=== PATIENT | female | born 1970 | race Caucasian/White ===

== ENCOUNTER → 2025-05-22 | Outpatient (CLI) | payer OTHER, SELFPAY ==
--- NOTE | 2025-05-22 11:11 | BRBX_PTH ---
PATIENT: YANA BARBOZA LOC: [facility] U#:[id number] AGE/SX: 55/F ROOM: RE05/22/[address]: Dr. Kelly Gates MD : 1970 BED: DIS: 05/22/2025 SPEC #: [id number] RECD: 05/22/25 11:30 STATUS: JESSICA JENI #: [id number] MATHEW: 05/22/25 11:[address]: Kelly Gates DEPT: SURGICAL PATHOLOGY RECD BY: Pastor Charlton ENTERED: 05/22/25 11:38 SP TYPE: BREAST BX OTHR DR: Elizabeth Rdz, SAW SETTER-C Tissues: A - Left breast, NOS Procedures: Immunohistochemical Stains Surgery Specimen Level IV IHC Stain ADDITIONAL HEADER OPERATION: Left breast stereotactic biopsy PRE-OP DIAGNOSIS: Left breast upper outer calcifications TISSUE SUBMITTED: A- Left breast microcalcifications: upper outer chambers 1&2 Ischemic Time: 13 minutes Fixation Time: 8 hours, 6 minutes MICROSCOPIC DIAGNOSIS A. Breast, left, "upper outer calcifications", stereotactic biopsy: - Ductal carcinoma in situ, high nuclear grade, solid pattern with comedonecrosis. - Focal microcalcification noted. - ER: positive (100%, strong intensity). - ND: positive (75%, intermediate to strong intensity). - Ki67q: 35-40% Note: IHC for CK5/6 and p40 support the histologic impression. MICROSCOPIC DESCRIPTION Slides are reviewed. All matched controls reacted appropriately. These tests were developed and their performance characteristics determined by [facility]. They may not have been cleared or approved by the [place] Food and Drug Administration. The FDA has determined that such clearance or approval is not necessary. The above immunohistochemical/dualISH markers are reviewed by the Pathologist. GROSS DESCRIPTION Received fresh and subsequently placed in formalin labeled with the patient's name and date of are 6 philip-yellow lobulated, elongated soft tissue fragments, 2.3-4.4 cm in length by 0.2-0.6 cm in diameter. The specimen is entirely submitted in 3 cassettes, following postoperative imaging as follows: A1: Chamber #1-#2A2: Chambers #3-#4A3: Chambers #5-#6 Cold ischemic time: 13 minutesFormalin fixation time: 8 hours, 6 minutes AL 05/22/2025 CPT:40641,[id number]
--- NOTE | 2025-05-22 11:48 | PCM.OPRPT ---
Operative Report (Standard) Operative Information Date of Procedure: 05/22/25 Pre-Operative Diagnosis: Left breast microcalcifications Post-Operative Diagnosis: Same Surgery/Procedure Performed: Stereotactic left breast biopsy tacking stitch remover: No Type of Anesthesia: Local Procedure Start Time: 11:10 Procedure Stop Time: 11:35 Select all DRAINS/GRAFTS/IMPLANTS that apply: Implanted device Implanted device details: Mammotome clip Estimated Blood Loss: 10 cc Specimen collected: Yes Description of specimen(s) removed: Left breast microcalcifications upper outer Description of surgery: Procedure: Left stereotactic core biopsy Indications: 55 year-old female with microcalcifications in the upper outer of the left breast. Risk benefits were discussed the patient and she elected to proceed with stereotactic core biopsy with clip placement Description of procedure: Patient was brought into the mammography suite and laid prone on the stereotactic table. A timeout was completed verifying correct patient, procedure, site, specially, prior to beginning procedure. The left breast was prepped and draped in usual sterile fashion and using local anesthesia was obtained with 1% lidocaine with epi. Patient's left breast was positioned and placed into compression. Initial film showed calcifications are in the center of the compression paddle. 15° views were then taken. The calcifications were localized. The left breast was prepped draped in usual sterile fashion. An 8-gauge mammotome was set up according to the digital coordinates. The tract of the mammotome was anesthetized with local anesthesia and an incision was made with the 11 blade scalpel at the entry site. The mammotome was advanced to the prefire state. Pre-prior films were checked and verified. The mammotome was fired. Post fire films were also checked and verified. Biopsies were taken from 9:00 to 2:00. The specimen was x-rayed and a good representation of the calcifications were within the specimen. Mammotome clip was placed at the 12 o'clock position. The mammotome was removed from the breast. An additional films were taken which showed the majority of the calcifications were removed and a clip was in place. Pressure was held for hemostasis for about 20 minutes. Once hemostasis was assured the wound was dressed with Steri-Strips and OpSite. The patient tolerated the procedure well and was discharged from the mammography suite good condition. complications: none Surgical Findings: See operative report Complications Complications: No
--- OUTSIDE RECORDS SUMMARY | 2025-05-22 19:58 | XMS RPT_ITS | CCD ---
Author Organization [facility] Care Team Providers Care [address] Man Name Role Phone DEMARIO ALLERGY NURSE-DRAWING KILN SUPERVISOR, AGA S Primary Care Physicia n DEMARIO ALLERGY NURSE-DRAWING KILN SUPERVISOR, AGA S Attending Unava ilable DEMARIO ALLERGY NURSE-DRAWING KILN SUPERVISOR, AGA S Primary Care Unava ilable DEMARIO ALLERGY NURSE-DRAWING KILN SUPERVISOR, AGA S Primary Care Unava ilable NELLY HERMOSILLO, CHRISTINE W Attending Unavailable DEMARIO ALLERGY NURSE-DRAWING KILN SUPERVISOR, AGA S Primary Care Unava ilable DEMARIO ALLERGY NURSE-DRAWING KILN SUPERVISOR, AGA S Attending Unava ilcooper GALLARDO MD, CAESAR Attending Unavailable DEMARIO ALLERGY NURSE-DRAWING KILN SUPERVISOR, AGA S Primary Care Unava ilcooper GALLARDO MD, CAESAR Attending Unavailable DEMARIO ALLERGY NURSE-DRAWING KILN SUPERVISOR, AGA S Primary Care Unava ilable DEMARIO ALLERGY NURSE-DRAWING KILN SUPERVISOR, AGA S Attending Unava ilable DEMARIO ALLERGY NURSE-DRAWING KILN SUPERVISOR, AGA S Primary Care Unava ilable DEMARIO ALLERGY NURSE-DRAWING KILN SUPERVISOR, AGA S Primary Care Unava ilable DEMARIO ALLERGY NURSE-DRAWING KILN SUPERVISOR, AGA S Attending Unava ilable SEFFENS ALLERGY NURSE-DRAWING KILN SUPERVISOR, ESTEFANI Attending Unavai lable DEMARIO ALLERGY NURSE-DRAWING KILN SUPERVISOR, AGA S Primary Care Unava ilable DEMARIO ALLERGY NURSE-DRAWING KILN SUPERVISOR, AGA S Primary Care Unava ilable DEMARIO ALLERGY NURSE-DRAWING KILN SUPERVISOR, AGA S Attending Unava ilable DEMARIO ALLERGY NURSE-DRAWING KILN SUPERVISOR, AGA S Primary Care Unava ilable DEMARIO ALLERGY NURSE-DRAWING KILN SUPERVISOR, AGA S Attending Unava wu Gates MD, Dr. Mendoza Attending Provider Demario NAIL FEEDER-C, Aga Primary Care Provider [phone] Demario NAIL FEEDER-C, Aga Referring Provider [phone] Aga Hanks NP Referring Unavailable Aga Hanks NP Primary Care Unavailable Kelly Gates Attending Unavailable Kelly Gates Attending Unavailable Aga Hanks NP Primary Care Unavailable Kelly Gates Referring Unavailable Allergies Allergy Classification Reported Allergen(s) Allergy Type Date of Onset Reaction(s) Facility (5 sources) Sulfonamides (Antibiotic); Translations: [sulfa drugs] Drug allergy [facility] (6 sources) Sulfonamide; Translations: [sulfa drugs] Drug allergy [facility] (1 source) Sulfonamides (Antibiotic) Propensity to adverse reactions [address] [facility] (1 source) bee venom protein (honey bee) Allergy to substance [address] [facility] (1 source) Sulfonamides (Antibiotic) Drug allergy (disorder) 5 [facility] (1 source) bee venom protein (honey bee) Drug allergy (disorder) 5 [facility] Medications Current Medications Medication Drug Class(es) Dates Sig (Normalized) Sig (Original) acetaminophen 325 mg oral capsule (1 source) Start: 02-16-2024 take 1 capsule by mouth every six hours acetaminophen 325 mg oral capsule Dose : 650 mg =, Oral, q6h, # 20 cap(s), 0 Refill(s), Pharmacy: [facility]/pharmacy #[id number], 170, cm, 02/16/24 10:53:00 EDT, Height, kg, 02/16/24 10:53:00 EDT, Dosing Weight Start Date: 02/16/24 Status: Ordered cyclobenzaprine hydrochloride 10 mg oral tablet (1 source) Muscle Relaxant Start: 07-22-2022 cyclobenzaprine 10 mg oral tablet Dose : 10 mg = 1 tab(s), Oral, TID, PRN for muscle spasm, # 30 tab(s), 1 Refill(s), Pharmacy: [facility]/pharmacy #[id number], 172.5, cm, 07/22/22 7:22:00 EDT, Height Start Date: 07/22/22 Status: Ordered {21 (Ethinyl Estradiol 0.03 MG / Norgestrel 0.3 MG Oral Tablet) / 7 (Inert Ingredients 1 MG Oral Tablet) } Pack [Low-Ogestrel 28 Day] (9 sources) Estrogen Start: 05-30-2023 take 1 tablet by mouth once daily Low-Ogestrel 0.3 mg-30 mcg oral tablet Dose = 1 tab(s), Oral, Daily, Brand Lo-Ogestrel, # 84 tab(s), 3 Refill(s), KULDIP, Pharmacy: [facility], 172.7, cm, 05/27/23 12:19:00 EDT, Height, kg, 05/27/23 12:19:00 EDT, Dosing Weight Start Date: 05/30/23 Status: Ordered Start: 05-24-2023 End: 06-21-2023 take 1 tablet by mouth once daily Low-Ogestrel 0.3 mg-30 mcg oral tablet Dose = 1 tab(s), Oral, Daily, Brand Lo-Ogestrel filling in lieu of pcp, # 28 tab(s), 0 Refill(s), KULDIP, Pharmacy: [facility]/pharmacy #[id number], 172, cm, 04/22/23 11:23:00 EDT, Height, kg, 04/22/23 11:23:00 EDT, Dosing Weight Start Date: 05/24/23 Stop Date: 06/21/23 Status: Ordered Start: 06-16-2022 End: 05-15-2025 Norgestrel-Ethinyl Estradiol (Low-Ogestrel (28)) 0.3-30 mg-mcg tablet Discontinued 1 {tbl} PO DAILY June 16, 2022 12:00am May 15, 2025 9:20am Start: 04-21-2022 End: 03-23-2023 take 1 tablet by mouth once daily Low-Ogestrel 0.3 mg-30 mcg oral tablet Dose = 1 tab(s), Oral, Daily, Brand Lo-Ogestrel, # 84 tab(s), 3 Refill(s), KULD[place], Pharmacy: [facility], 172.5, cm, 04/21/22 7:55:00 EDT, Height, kg, 04/21/22 7:55:00 EDT, Dosing Weight Start Date: 04/21/22 Stop Date: 03/23/23 Status: Ordered ibuprofen 600 mg oral tablet (1 source) Nonsteroidal Anti-inflammatory Drug Start: 02-16-2024 IBU 600 mg oral tablet Dose : 600 mg = 1 tab(s), Oral, q6h, # 20 tab(s), 0 Refill(s), [id number] 170, cm, 02/16/24 10:53:00 EDT, Height, kg, 02/16/24 10:53:00 EDT, Dosing Weight Start Date: 02/16/24 Status: Ordered meloxicam 15 mg oral tablet (1 source) Nonsteroidal Anti-inflammatory Drug Start: 07-22-2022 meloxicam 15 mg oral tablet Dose : 15 mg = 1 tab(s), Oral, qDay, # 30 tab(s), 1 Refill(s), [id number] 172.5, cm, 07/22/22 7:22:00 EDT, Height Start Date: 07/22/22 Status: Ordered oxyCODONE hydrochloride 5 mg oral tablet (1 source) Opioid Agonist Start: 02-16-2024 End: 02-17-2024 oxyCODONE 5 mg oral tablet ( IMMEDIATE release ) Dose : 5 mg = 1 tab(s), Oral, q6hr, # 4 tab(s), 0 Refill(s), [id number], Acute post-operative pain Status post hysteroscopic polypectomy, 170, cm, 02/16/24 10:53:00 EDT, Height, 85, kg, 02/16/24 10:53:00 EDT, Dosing Weight Start Date: 02/16/24 Stop Date: 02/17/24 Status: Ordered rizatriptan 10 mg oral tablet (13 sources) Serotonin-1b and Serotonin-1d Receptor Agonist Start: 01-13-2024 take 1 tablet by mouth once as needed for headache rizatriptan 10 mg oral tablet See Instructions, TAKE 1 TABLET BY MOUTH ONCE NEEDED FOR MIGRAINE HEADACHE, # 12 tab(s), 9 Refill(s), Pharmacy: [facility], 170, cm, 01/06/24 13:57:00 EST, Height, kg, 01/06/24 13:57:00 EST, Dosing Weight Start Date: 01/13/24 Status: Ordered Quantity: 12.0 Unit: tab(s) Repeat number: 10 Start: 07-17-2023 take 1 tablet by mar th once as needed for headache rizatriptan 10 mg oral tablet See Instructions, TAKE 1 TABLET BY MOUTH ONCE NEEDED FOR MIGRAINE HEADACHE, # 12 tab(s), 1 Refill(s), Pharmacy: [facility], 172.7, cm, 05/27/23 12:19:00 EDT, Height, kg, 05/27/23 12:19:00 EDT, Dosing Weight Start Date: 10/04/23 Status: Ordered Start: 04-21-2022 take 1 tablet by mar th once as needed for headache rizatriptan 10 mg oral tablet See Instructions, TAKE 1 TABLET BY MOUTH ONCE NEEDED FOR MIGRAINE HEADACHE, # 9 tab(s), 1 Refill(s), Pharmacy: [facility], 172, cm, 04/22/23 11:23:00 EDT, Height, kg, 04/22/23 11:23:00 EDT, Dosing Weight Start Date: 04/22/23 Status: Ordered triamcinolone acetonide 5 mg/ml topical cream (3 sources) Corticosteroid Start: 04-12-2025 End: 05-10-2025 triamcinolone 0.5% topical cream Apply 1 doris, Topical, BID, X 14 day(s), # 60 gram(s), 1 Refill(s), Pharmacy: [facility]/pharmacy #[id number], Cream, 171.5, cm, 04/12/25 8:21:00 EDT, Height, 79, kg, 04/12/25 8:21:00 EDT, Dosing Weight Start Date: 04/12/25 Stop Date: 05/10/25 Status: Ordered Quantity: 60.0 Unit: g Repeat number: 2 Completed/Discontinued Medications Medication Drug Class(es) Dates Sig (Normalized) Sig (Original) amitriptyline hydrochloride 50 mg oral tablet (4 sources) Tricyclic Antidepressant Start: 04-21-2022 End: 05-15-2025 take 1 tablet by mouth once daily Amitriptyline 50 mg tablet Discontinued 50 mg PO DAILY June 16, 2022 12:00am May 15, 2025 9:20am amoxicillin 875 mg / clavulanate 125 mg oral tablet (1 source) Penicillin-class Antibacterial Start: 08-08-2022 End: 05-15-2025 Amoxicillin-Pot Clavulanate 875-125 mg tablet Discontinued 1 {tbl} PO TWICE A DAY 14 0 August 08, 2022 12:00am May 15, 2025 9:20am cefdinir 300 mg oral capsule (1 source) Cephalosporin Antibacterial Start: 10-13-2015 End: 06-16-2022 take 1 capsule by mouth twice daily Cefdinir 300 MG capsule Discontinued 300 mg PO TWICE A DAY 20 0 October 13, 2015 1:00am June 16, 2022 5:23pm [id number] 0.3 ml EPINEPHrine 1 mg/ml auto-injector (9 sources) alpha-Adrenergic Agonist, beta-Adrenergic Agonist, Catecholamine Start: 07-22-2022 EpiPen 2-Abhijit 0.3 mg injectable kit Dose : 0.3 mg =, Intramuscular, AsDirected, PRN Allergic reaction, # 1 kit(s), 0 Refill(s), Pharmacy: [facility]/pharmacy #[id number], 172.5, cm, 07/22/22 7:22:00 EDT, Height Start Date: 07/22/22 Status: Ordered Quantity: 1.0 Unit: kit(s) Repeat number: 1 predniSONE 10 mg oral tablet (1 source) Start: 06-16-2022 End: 06-28-2022 Prednisone 10 mg tablet Discontinued 10 mg PO daily 30 12 0 June 16, 2022 12:00am June 27, 2022 12:00am June 28, 2022 12:04am Unspecified contact dermatitis, unspecified cause Take 4 tabs once daily days 1-3 3 tabs once daily days 4-6 2 tabs once daily days 7-9 and 1 tab once daily days 10-12. 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 Episodic Headache; including migraine (11 sources) Migraine 08-26-2018 Chronic Menstrual disorders (3 sources) Menorrhagia; Translations: [Excessive and frequent menstruation with regular cycle] Onset: 02-16-2024 Chronic Other connective tissue disease (8 sources) Bursitis of olecranon of left elbow 08-14-2021 Episodic Other female genital disorders (2 sources) Abnormal uterine bleeding 01-06-2024 Chronic Other female genital disorders (1 source) Polyp of corpus uteri; Translations: [Polyp of corpus uteri] Onset: 02-16-2024 Episodic Other nervous system disorders (1 source) Postoperative pain ; Translations: [Other acute postprocedural pain] Onset: 02-16-2024 Episodic Other screening for suspected conditions (not mental disorders or infectious disease) (9 sources) Stool DNA-based colorectal cancer screening positive; Translations: [Other abnormal and inconclusive findings on diagnostic imaging of breast] Onset: 05-08-2025 05-17-2023 Episodic Other upper respiratory infections (3 sources) Acute pharyngitis, unspecified; Translations: [Acute maxillary sinusitis] Onset: 10-11-2024 Episodic Poisoning by nonmedicinal substances (1 source) Bee sting; Translations: [Toxic effect of venom of bees, accidental (unintentional), initial encounter] 06-16-2022 Episodic Residual codes; unclassified (1 source) Past history of procedure; Translations: [Other specified postprocedural states] Onset: 02-16-2024 Episodic Skin and subcutaneous tissue infections (8 sources) Cellulitis of upper limb 08-14-2021 Episodic Spondylosis; intervertebral disc disorders; other back problems (7 sources) Neck pain; Translations: [Cervicalgia] Episodic Unclassified (11 sources) Cancer cervix screening status 04-21-2022 Unclassified (20 sources) Patient encounter status 04-04-2020 Past or Other Problems Problem Classification Problem Date Documented Da te Episodic/Chronic Other gastrointestinal disorders (2 sources) Other fecal abnormalities; Translations: [Other fecal abnormalities] Onset: 05-27-2023 Episodic Results Test Name Value Interpretation Reference Range Facility Surgery Visit Reporton 05-15 Surgery Visit Report [facility] [address] [place] [address] OFFICE VISIT Date of Service: 05/15/25 MR#: [id number] Acct: [id number] Name: YANA BARBOZA Rep #: [id number] : 1970 Provider: Dr. Kelly reyes MD Age/Sex: 55/F Location: [facility] Status: Signed Intake Vital Signs 06/16/22 17:22 05/15/25 09:19 Height 5 ft 8 in 5 ft 8 in Weight: 174 lb 4 oz BMI 26.4 BP 115/76 Blood Pressure Location Rt brachial Position Sitting Respiration 17 Pulse 81 Pulse Source Monitor Temp 97.3 F L Temp Source Temporal Pulse Oximetry (%) 100 Oxygen Delivery Method room air Intake Visit Reasons: BIRADS 4- MAMMO ONLY Chief Complaint: BIRADS 4- mammo only Is patient in pain?: No Allergies bee venom protein (honey bee) Allergy (Severe, Verified 05/15/25 09:20) Anaphylaxis Sulfa (Sulfonamide Antibiotics) Adverse Reaction (Verified 05/15/25 09:20) Nausea Medications ???Medication ???Instructions ???Recorded ???Confirmed ???Type rizatriptan 10 mg tablet 10 mg PO ONCE PRN 06/16/22 5 History PFSH Surgical History H/O sinus surgery Family History (Updated 05/15/25 @ 09:19 by Camryn Booth LPN) Grandmother Breast cancer Social History (Updated 05/15/25 @ 09:19 by Camryn Booth LPN) Smoking Status: Never smoker alcohol intake: never substance use type: does not use HPI HPI HPI: 55-year-old female presents due to abnormal left breast mammogram. Linear microcalcifications are seen on mammogram given a BI-RADS 4 recommended biopsy. Patient denies any pain to her breast, trauma, nipple discharge. Age of menses 14, age of of first child N/A, family history of breast cancer maternal grandmother in her 70s, no previous breast biopsies. ROS General General: No weight change, appetite, fatigue, colon cancer, breast cancer or weakness HEENT HEENT: No difficulty swallowing, eye injury, eye surgery, swollen glands or hoarseness Endo Endocrine: No thyroid disease, diabetes mellitus, thyroid cancer, Hair loss, heat intolerance or cold intolerance Skin Skin: No rash or changing moles Breast Breast: Yes abnormal mammogram; No left breast lump, right breast lump, nipple discharge, breast pain, abnormal US or breast enlargement Musc Musculoskeletal: Yes back problems; No arthritis, rheumatoid arthritis, gout or joint pain Additional Details: scoliosis Cardio Cardiovascular: No murmur, pacemaker, heart disease, atrial fibrillation, high blood pressure, heart attack, heart stent, palpitations, shortness of breath with exertion or chest pain Psych Psychiatric: No depression, anxiety or hearing voices Resp Respiratory: No shortness of breath, No sleep apnea, No cough, No COPD, No asthma, No emphysema and No wheezing Gastro Gastrointestinal: No abdominal pain, No nausea or vomiting, No diarrhea, No constipation, No blood in stool, No acid reflux, No hemorrhoids, No ulcers, No gallbladder problem and No black,tarry stools Bryan Hematologic: No blood thinners, No blood disorders, No bleeding, No anemia and No blood clots Neuro Neurologic: No numbness, No tingling and No weakness Exam Const General: cooperative, healthy appearing and no acute distress [facility] Head: normal to inspection Chest Other: Patient deferred/declined breast exam Resp Effort Inspection: normal respiratory effort Cardio Rate: regular rate GI Inspection: non-distended Skin General: no rashes or lesions noted Neuro General: patient oriented x3 Extrem General: no clubbing, cyanosis or edema Psych Affect: normal affect Assessment and Plan Assessment and Plan (1) Abnormality of left breast on screening mammogram: Status: Acute Orders: Orders Stereo Breast Biopsy [address] [place] [address] 05/22/25 R92.8 - Other abnormal and inconclusive findings on diagnostic imaging of breast Plan I have discussed above with the patient. I have recommended stereotactic guided needle core breast biopsy . I have described the procedure to the patient. A marker clip will be placed to identify the location. Patient has been counseled to the risks/benefits of the procedure. I have explained the risks of the surgery, including but not limited to: infection, bleeding, injury to any blood vessels/nerves, scar tissue, missing the lesion, further surgery, etc. - the patient understands and agrees to proceed. I have answered all of the patient's questions to her satisfaction and she has no further questions. Kelly Gates M.D. Pager: [phone] [facility] [address] [place] [address], Outpatient Pavilion, [address] [place] [address] Office: [phone] Coding Level of (more content not included)... Normal [facility] MA MAMMOGRAM DIAGNOSTIC LEFT on 05-08-2025 [place] MAMMOGRAM DIAGNOSTIC LEFT ORIGINAL FROM: [address] [address] PROCEDURE FOR: YANA BARBOZA [address] [place] [address] Home: PID#: [id number] Exam#: [id number] : 1970 Age: 55 TO: AGA HANKS APRN [address] [address] Fax: NO FAX EXAMINATION: DIAGNOSTIC DIGITAL LEFT BREAST MAMMOGRAM, 05/08/2025 11:00 am TECHNIQUE: Diagnostic mammography of the left breast was performed. Current study was also evaluated with a Computer Aided Detection (CAD) system. COMPARISON: Mammogram 2025, June 04, 2023 HISTORY: ORDERING SYSTEM PROVIDED HISTORY: Reason for Exam: Calcifications FINDINGS: BREAST DENSITY: There are scattered areas of fibroglandular density. There is an 8 mm group of punctate calcifications within the left breast at 2 o'clock, middle depth. These are seen in additional views. Some of these calcifications appear to be linear and possibly branching. No additional significant masses, calcifications, or other findings. IMPRESSION: The 8 mm group of calcifications within the left breast appears suspicious of malignancy. A stereotactic core biopsy is recommended. BIRADS: BI-RADS: 4: Suspicious RECALL: immediate RECALL TYPE: Biopsy followup LETTER SENT: Biopsy Recommended BI-RADS 4 and 5 Interpreted by: Jackie Gomez MD Preliminary Report By: Jackie Gomez MD Electronically signed By Jackie Gomez MD Dictated Date: 05/08/2025 7:14:42 PM Prelim Date: 05/08/2025 7:16:54 PM Sign Date: 05/08/2025 7:16:54 PM Ordering Provider: AGA HANKS Interpreted by: Jackie Gomez MD Preliminary Report By: Jackie Gomez MD Electronically signed By Jackie Gomez MD Dictated Date: 05/08/2025 7:14:42 PM Prelim Date: 05/08/2025 7:16:54 PM Sign Date: 05/08/2025 7:16:54 PM Ordering Provider: AGA HANKS Sliver Former: GEGE CONTRERAS RT (R)(M) letter sent: Biopsy Recommended BI-RADS 4 and 5 Mammogram BI-RADS: 4 Suspicious for malignancy Normal [facility] MAMMOGRAM SCREENING BILAT ERAL W/TOMOon 05-02-2025 CO MAMMOGRAM SCREENING BILATERAL W/[place] ORIGINAL FROM: [address] [address] PROCEDURE FOR: YANA BARBOZA [address] [address] Home: PID#: [id number] Exam#: [id number] : 1970 Age: 55 TO: AGA HANKS ALLERGY NURSE [place] [address] Fax: NO FAX EXAMINATION: SCREENING DIGITAL BILATERAL MAMMOGRAM WITH TOMOSYNTHESIS, 2025 7:52 am TECHNIQUE: Screening mammography of the bilateral breasts was performed with tomosynthesis. 2D standard and 3D tomosynthesis combination imaging performed through both breasts in the MLO and CC projection. Computer aided detection was utilized in the interpretation of this exam. COMPARISON: 06/04/2023, 06/03/2022 HISTORY: Breast cancer screening. FINDINGS: BREAST DENSITY: Scattered fibroglandular tissue. New grouped heterogeneous calcifications measuring 8 mm are noted in the left breast at 2 o'clock middle depth. There are no significant masses. IMPRESSION: New grouped heterogeneous calcifications in left breast at 2 o'clock middle depth. Recommend further evaluation with spot magnification views and a true lateral view. Reji Emery risk calculations, generated with the history provided, report this patient's 10 year risk and lifetime risk for developing breast cancer at 4.6% and 14.7%, respectively. Based on this assessment tool, if the patient's calculated lifetime risk is below 20%, then the patient is considered at average risk for developing breast cancer. If the patient's calculated lifetime risk is at or above 20%, then the patient is considered high risk for developing breast cancer and may be a candidate for supplemental breast MRI screening in addition to annual mammographic screening per the [place]. BIRADS: BI-RADS: 0: Incomplete: Need Additional Imaging Evaluation RECALL: immediate RECALL TYPE: mammo LETTER SENT: Abnormal-Needs additional work up BI-RADS 0 Interpreted by: Selvin Perales MD Preliminary Report By: Cristhian Schroeder Electronically signed By Selvin Perales MD Dictated Date: 2025 9:49:14 AM Prelim Date: 05/02/2025 3:27:53 PM Sign Date: 05/02/2025 3:27:53 PM Ordering Provider: AGA HANKS Interpreted by: Selvin Perales MD Preliminary Report By: Cristhian Schroeder Electronically signed By Selvin Perales MD Dictated Date: 2025 9:49:14 AM Prelim Date: 05/02/2025 3:27:53 PM Sign Date: 05/02/2025 3:27:53 PM Ordering Provider: AGA HANKS Sliver Former: GEGE CONTRERAS RT (R)(M) letter sent: Abnormal-Needs additional work up BI-RADS 0 Mammogram BI-RADS: [address] [facility] .GFRon 2025 Estimated Glomerular Filtration Rate 65 ml/min/1.73sqm Normal [facility] Comment on above: Result Comment: Stages of Chronic Kidney Disease (CKD) Stage Description eGFR(ml/min/1.73 sq.m.) CKD 1 Normal kidney function or >=90 normal kindney function with possible kidney damage (ex. Proteinuria) CKD 2 Kidney damage with mild loss 60-89 of kidney function CKD 3a Mild to moderate loss of kidney 45-59 function CKD 3b Moderate to severe loss of 30-44 of kindey function CKD 4 Severe loss of kidney function 15-29 CKD 5 Kidney failure <15 Note: (go live 2024) the eGFR calculation was updated to the 2020 CKD-EPI creatinine equation without a race factor to calculate the eGFR results. Performed By: #### L IPID, GFR, CMP #### [address] [address] CMPon 2025 Albumin Level 3.7 G/dL Normal 3.5-5.0 [facility] Comment on above: Performed By: #### L IPID, GFR, CMP #### [address] [address] Albumin/Globulin [Mass ratio] 1.0 {ratio} Low 1.1-2.5 [facility] Comment on above: Performed By: #### L IPID, GFR, CMP #### [address] [address] ALP [Catalytic activity/Vol] 113 U/L Normal 40-135 [facility] Comment on above: Performed By: #### L IPID, GFR, CMP #### [address] [address] ALT [Catalytic activity/Vol] 21 U/L Normal 14-59 [facility] Comment on above: Performed By: #### L IPID, GFR, CMP #### [address] [address] AST [Catalytic activity/Vol] 26 U/L Normal 10-40 [facility] Comment on above: Performed By: #### L IPID, GFR, CMP #### [address] [address] Bili Total 0.5 mg/dL Normal 0.2-1.0 [facility] Comment on above: Result Comment: Use of this assay is not recommended for patients undergoing treatment with eltrombopag due to the potential for falsely elevated results. Performed By: #### L IPID, GFR, CMP #### [address] [address] BUN/Creatinine Ratio 25 ratio Normal 7-27 [facility] Comment on above: Performed By: #### L IPID, GFR, CMP #### [address] [address] Calcium [Mass/Vol] 9.0 mg/dL Normal 8.4-10.2 [facility] Comment on above: Performed By: #### L IPID, GFR, CMP #### [address] [address] Chloride [Moles/Vol] 106 mmol/L Normal 98-107 [facility] Comment on above: Performed By: #### L IPID, GFR, CMP #### [address] [address] CO2 [Moles/Vol] 26 mmol/L Normal 22-29 [facility] Comment on above: Performed By: #### L IPID, GFR, CMP #### [address] [address] Creatinine [Mass/Vol] 1.03 mg/dL High 0.51-0.95 [facility] Comment on above: Performed By: #### L IPID, GFR, CMP #### [address] [address] Electrolyte Balance 9.0 mEq/L Normal 4.0-15.0 [facility] Comment on above: Performed By: #### L IPID, GFR, CMP #### [address] [address] Globulin 3.8 G/dL Normal 2.7-4.4 [facility] Comment on above: Performed By: #### L IPID, GFR, CMP #### [address] [address] Glucose [Mass/Vol] 92 mg/dL Normal 70-105 [facility] Comment on above: Performed By: #### L IPID, GFR, CMP #### [address] [address] Potassium [Moles/Vol] 4.0 mmol/L Normal 3.5-5.1 [facility] Comment on above: Performed By: #### L IPID, GFR, CMP #### [address] [address] Sodium [Moles/Vol] 141 mmol/L Normal 136-145 [facility] Comment on above: Performed By: #### L IPID, GFR, CMP #### [facility] [address] [place], [place] [address] Total Protein 7.5 G/dL Normal 6.4-8.2 [facility] Comment on above: Performed By: #### L IPID, GFR, CMP #### [facility] [address] [place], [place] [address] Urea nitrogen [Mass/Vol] 26 mg/dL High 7-18 [facility] Comment on above: Performed By: #### L IPID, GFR, CMP #### [facility] [address] [place], [place] [address] LABORATORYOrdered By: SYSTEM SYSTEM on 2025 Albumin BCP dye [Mass/Vol] 3.7 G/dL Normal 3.5 - 5.0 G/dL AO ADM SS Albumin/Globulin [Mass ratio] 1.0 {ratio} Low 1.1 - 2.5 ratio AO ADM SS ALP [Catalytic activity/Vol] 113 U/L Normal 40 - 135 U/L AO ADM SS ALT With P-5'-P [Catalytic activity/Vol] 21 U/L Normal 14 - 59 U/L AO ADM SS AST With P-5'-P [Catalytic activity/Vol] 26 U/L Normal 10 - 40 U/L AO ADM SS Bilirubin [Mass/Vol] 0.5 mg/dL Normal 0.2 - 1 .0 mg/dL AO ADM SS Comment on above: Interpretive Data: U se of this assay is not recommended for patients undergoing treatment with eltrombopag due to the potential for falsely elevated results. Calcium [Mass/Vol] 9.0 mg/dL Normal 8.4 - 10. 2 mg/dL AO ADM SS Chloride [Moles/Vol] 106 mmol/L Normal 98 - 10 7 mmol/L AO ADM SS CO2 [Moles/Vol] 26 mmol/L Normal 22 - 29 mmol/L AO ADM SS Creatinine [Mass/Vol] 1.03 mg/dL High 0.51 - 0.95 mg/dL AO ADM SS Electrolyte Balance 9.0 mEq/L Normal 4.0 - 15 .0 mEq/L AO ADM SS Estimated Glomerular Filtration Rate 65 ml/min/1.73sqm Invalid Interpretation Code AO Chemistry S Comment on above: Interpretive Data: Stages of Chronic Kidney Disease (CKD) Stage Description eGFR(ml/min/1.73 sq.m.) CKD 1 Normal kidney function or >=90 normal kindney function with possible kidney damage (ex. Proteinuria) CKD 2 Kidney damage with mild loss 60-89 of kidney function CKD 3a Mild to moderate loss of kidney 45-59 function CKD 3b Moderate to severe loss of 30-44 of kindey function CKD 4 Severe loss of kidney function 15-29 CKD 5 Kidney failure <15 Note: (go live 2024) the eGFR calculation was updated to the 2020 CKD-EPI creatinine equation without a race factor to calculate the eGFR results. Globulin 3.8 G/dL Normal 2.7 - 4.4 G/dL AO ADM SS Glucose [Mass/Vol] 92 mg/dL Normal 70 - 105 mg/dL AO ADM SS Potassium [Moles/Vol] 4.0 mmol/L Normal 3.5 - 5.1 mmol/L AO ADM SS Protein [Mass/Vol] 7.5 G/dL Normal 6.4 - 8.2 G/dL AO ADM SS Sodium [Moles/Vol] 141 mmol/L Normal 136 - 145 mmol/L AO ADM SS Urea nitrogen [Mass/Vol] 26 mg/dL High 7 - 18 mg/dL AO ADM SS Urea nitrogen/Creatinine [Mass ratio] 25 ratio Normal 7 - 27 ratio AO ADM SS LABORATORYOrdered By: Aayush Cox on 2025 Cholesterol [Mass/Vol] 211 mg/dL High 0 - 200 mg/dL AO ADM SS Comment on above: Interpretive Data: C holesterol Reference Interval: Less than 200 Desirable 200-239 Borderline high risk 240 and above High risk Cholesterol in HDL [Mass/Vol] 56 mg/dL Normal 40 - 60 mg/dL AO ADM SS Cholesterol in LDL [Mass/Vol] 135 mg/dL High 0 - 130 mg/dL AO ADM SS Triglyceride [Mass/Vol] 101 mg/dL Normal 0 - 150 mg/dL AO ADM SS Comment on above: Interpretive Data: T riglyceride Reference Interval: Less than 150 Normal 150-199 Borderline high risk 200-499 High risk 500 or higher Very high risk LIPIDon 2025 Cholesterol [Mass/Vol] 211 mg/dL High 0-200 [facility] Comment on above: Result Comment: Chol esterol Reference Interval: Less than 200 Desirable 200-239 Borderline high risk 240 and above High risk Performed By: #### L IPID, GFR, CMP #### [place] [id number] [place], [place] [address] Cholesterol in HDL [Mass/Vol] 56 mg/dL Normal 40-60 [facility] Comment on above: Performed By: #### L IPID, GFR, CMP #### [address] [address] Cholesterol in LDL [Mass/Vol] 135 mg/dL High 0-130 [facility] Comment on above: Performed By: #### L IPID, GFR, CMP #### [address] [address] Triglyceride [Mass/Vol] 101 mg/dL Normal 0-150 [facility] Comment on above: Result Comment: Trig lyceride Reference Interval: Less than 150 Normal 150-199 Borderline high risk 200-499 High risk 500 or higher Very high risk Performed By: #### L IPID, GFR, CMP #### [address] [address] Final Surgical Pathology Rep [facility] 02-18-2024 Final Surgical Pathology Report . Pathology Reports Accession: Collected Date/Time: Received Date/Time: Pathologist: [id number] 02/16/2024 12:15 EDT 02/17/2024 08:51 EDT CARSON CHÁVEZ MD Final Surgical Pathology Report DIAGNOSIS: A. ENDOMETRIAL POLYP: - ENDOMETRIAL POLYP IDENTIFIED B. ENDOMETRIUM, CURETTAGE: - FRAGMENTS OF ENDOMETRIAL POLYP AND PROLIFERATIVE ENDOMETRIUM IDENTIFIED CLINICAL INFORMATION: ABNORMAL UTERINE AND VAGINAL BLEEDING, MENOPAUSAL AND FEMALE CLIMACTERIC STATES Procedure: HYSTEROSCOPY WITH DILATION AND CURETTAGE Preoperative diagnosis: ABNORMAL UTERINE BLEEDING, ABNORMAL ENDOMETRIAL ULTRASOUND, MENOPAUSAL SYMPTOMS Postoperative diagnosis: ABNORMAL UTERINE BLEEDING, ABNORMAL ENDOMETRIAL ULTRASOUND, MENOPAUSAL SYMPTOMS SPECIMEN: A ENDOMETRIAL POLYP B ENDOMETRIAL CURETTINGS GROSS DESCRIPTION: All parts labelled with patient name and [id number] A. Received in formalin labeled "endometrial polyp" is 1 gauze containing 2 philip-pink and hemorrhagic tissue fragments aggregating 2.3 x 1.6 x 0.5 cm. TS-1 B. Received in formalin labeled endometrial curettings" is 1 gauze containing multiple philip-pink and hemorrhagic tissue fragments aggregating to 0.2 x 1.5 x 0.4 cm. TS-1 Valeri Alex, Grossing Food Expeditor/ Dr. Carson Chávez, Pathologist Dictated by Valeri Alex MICROSCOPIC DESCRIPTION: The microscopic examination is performed, except in the case of Gross Only. Electronically Signed by Pathology Report verified by [facility] CARSON CHÁVEZ Sign out Date: 02/18/2024 15:08 Performing Lab: [facility], [address] [place] [address] Pathology Dept Disclaimer If ancillary studies were utilized, the following Laboratory Developed Test (LDT) disclaimer will apply: Under CLIA requirements, [facility] is qualified to perform high complexity testing. For all ancillary stains, positive and negative controls stain appropriately. Performance characteristics of immunohistochemical and chromogenic in-situ hybridization tests have been determined by [facility]. These tests are used for clinical purposes, They should not be regarded as investigational or for research. Normal [facility] ([place]) ABO/Rh (Gel)on 02-16-2024 ABO/Rh Interp Positive Invalid Interpretation Code [facility]) Comment on above: Performed By: #### A TALON HE ####[address] [place], [place] [address] ABS (Gel)on 02-16-2024 ABSC Interp (Gel) Negative Normal [facility]) Comment on above: Performed By: #### A TALON HE ####[address] [place], [place] [address] LABORATORYOrdered By: Alonzo Simons on 02-16-2024 ABO and Rh group Nom (Bld) Blood group A Rh(D) positive Invalid Interpretation Code AO BB Auto SS Blood group antibody screen Ql Negative ABSC (02/16/24 11:00 AM) Normal AO BB Auto SS LABORATORYOrdered By: Ashlee Fan on 02-16-2024 HCG ( test) Ql Negative (02/16/24 10:44 AM) Normal AO Manual Urine SS test (u) int Not detected Invalid Interpretation Code AO Manual Urine SS PREGUon 02-16-2024 HCG ( test) Ql (U) Negative Normal [facility] ([place]) Comment on above: Performed By: #### P REGU ####[address] [place], [place] [address] test (u) int Not detected Invalid Interpretation Code [facility] [place] Comment on above: Performed By: #### P REGU ####[address] [place], [place] [address] .Auto Diffon 02-09-2024 Basophil, Absolute 0.1 10 3/mcL Normal 0.0-0.2 Pending sale to [facility] ([place]) Comment on above: Performed By: #### A BSGEL, ANEU, ADIFF, ABOGEL, CBC ####[address] [place], [place] [address] Basophils/100 WBC (Bld) 1.4 % Normal 0.0-2.5 [facility] ([place] Comment on above: Performed By: #### A BSGEL, ANEU, ADIFF, ABOGEL, CBC ####[address] [place], [place] [address] Eosinophil, Absolute 0.5 10 3/mcL High 0.0-0.4 [facility] ([place]) Comment on above: Performed By: #### A BSGEL, ANEU, ADIFF, ABOGEL, CBC ####[address] [place], [place] [address] Eosinophils/100 WBC (Bld) 7.7 % High 0.0-7.0 [facility] [place] Comment on above: Performed By: #### A BSGEL, ANEU, ADIFF, ABOGEL, CBC ####[address] [place], [place] [address] Lymphocyte, Absolute 1.7 10 3/mcL Normal 0.8-3.9 [facility] ([place]) Comment on above: Performed By: #### A BSGEL, ANEU, ADIFF, ABOGEL, CBC ####[address] [place], [place] [address] Lymphocytes/100 WBC (Bld) 26.1 % Normal 10.0-50.0 [facility] ([place] Comment on above: Performed By: #### A CARRIE MARISCAL ADIFFSTEVENGEL, CBC ####[address] [place], [place] [address] Monocyte, Absolute 0.4 10 3/mcL Normal 0.2-1.0 Pending sale to [facility] ([place]) Comment on above: Performed By: #### A CARRIE MARISCAL ADIFF ABOGEL, CBC ####[address] [place], [place] [address] Monocytes/100 WBC (Bld) 5.7 % Normal 1.7-13.0 [facility] ([place] Comment on above: Performed By: #### A CARRIE MARISCAL ADIFFSTEVENGEL, CBC ####[address] [place], [place] [address] Neutrophils/100 WBC (Bld) 59.1 % Normal 37.0-80.0 [facility] ([place] Comment on above: Performed By: #### A CARRIE MARISCAL ADIFF ABOGEL, CBC ####[address] [place], [place] [address] .NEUABSon 02-09-2024 Neutrophil, Absolute 3.9 10 3/mcL Normal 2.9-6.2 [facility] ([place]) Comment on above: Performed By: #### A CARRIE MARISCAL ADIFFCLARA, CBC ####[address] [place], [place] [address] ABO/Rh (Gel)on 02-09-2024 ABO/Rh Interp Positive Invalid Interpretation Code [facility] [place] Comment on above: Performed By: #### A CARRIE MARISCAL ADIFF, ABOGEL, CBC ####[address] [place], [place] [address] ABS (Gel)on 02-09-2024 ABSC Interp (Gel) Negative Normal [facility] ([place] Comment on above: Performed By: #### A BSCARRIE GAFFNEY, ADIFF, ABOGEL, CBC ####[address] [place], [place] [address] CBCon 02-09-2024 Erythrocyte distribution width (RBC) [Ratio] 12.9 % Normal 11.5-14.5 [facility] ([place] Comment on above: Order Comment: Pre-A dmission Testing Performed By: #### A BSGEL, ANEU, ADIFF, ABOGEL, CBC ####[address] [place], [place] [address] Hematocrit (Bld) [Volume fraction] 39.3 % Normal 37.0-47.0 [facility] [place] Comment on above: Order Comment: Pre-A dmission Testing Performed By: #### A BSGEL, ANEU, ADIFF, ABOGEL, CBC ####[address] [place], [place] [address] Hgb 13.5 G/dL Normal 12.0-16.0 [facility] ([place] Comment on above: Order Comment: Pre-A dmission Testing Performed By: #### A BSGEL, ANEU, ADIFF, ABOGEL, CBC ####[address] [place], [place] [address] MCH (RBC) [Entitic mass] 32.2 pg High 27.0-31.2 [facility] ([place] Comment on above: Order Comment: Pre-A dmission Testing Performed By: #### A BSGEL, ANEU, ADIFF, ABOGEL, CBC ####[address] [place], [place] [address] MCHC 34.3 G/dL Normal 33.0-37.0 [facility] ([place] Comment on above: Order Comment: Pre-A dmission Testing Performed By: #### A BSGEL, ANEU, ADIFF, ABOGEL, CBC ####[address] [place], [place] [address] MCV (RBC) [Entitic vol] 93.8 fL Normal 80.0-94.0 [facility] [place] Comment on above: Order Comment: Pre-A dmission Testing Performed By: #### A BSGEL, ANEU, ADIFF, ABOGEL, CBC ####[address] [place], [place] [address] Platelet 304 10 3/mcL Normal 130-400 [facility] [place] Comment on above: Order Comment: Pre-A dmission Testing Performed By: #### A BSGULSHAN ANEU ADIFF ABOGEL, CBC ####[address] [place], [place] [address] Platelet mean volume (Bld) [Entitic vol] 8.6 fL Normal 7.4-10.4 [facility] [place] Comment on above: Order Comment: Pre-A dmission Testing Performed By: #### A BSGEL, ANEU ADIFF, ABOGEL, CBC ####[address] [place], [place] [address] RBC 4.19 10 6/mcL Low 4.20-5.40 [facility] ([place] Comment on above: Order Comment: Pre-A dmission Testing Performed By: #### A BSGULSHAN ANEU ADIFF ABOGEL, CBC ####[address] [place], [place] [address] WBC 6.6 10 3/mcL Normal 4.6-10.8 [facility] ([place] Comment on above: Order Comment: Pre-A dmission Testing Performed By: #### A BSGEL ANEU, ADIFF, ABOGEL, CBC ####[address] [place], [place] [address] LABORATORYOrdered By: Roberto Iqbal on 02-09-2024 ABO and Rh group Nom (Bld) Blood group A Rh(D) positive Invalid Interpretation Code AO BB Auto SS Blood group antibody screen Ql Negative ABSC (02/09/24 8:50 AM) Normal AO BB Auto SS LABORATORYOrdered By: SYSTEM SYSTEM on 02-09-2024 Basophil, Absolute 0.1 103/mcL Normal 0.0 - 0.2 10^3/mcL AO Workflow SS Basophils/100 WBC (Bld) 1.4 % Normal 0.0 - 2.5 % AO Workflow SS Eosinophil, Absolute 0.5 103/mcL High 0.0 - 0 .4 10^3/mcL AO Workflow SS Eosinophils/100 WBC (Bld) 7.7 % High 0.0 - 7.0 % AO Workflow SS Erythrocyte distribution width (RBC) [Ratio] 12.9 % Normal 11.5 - 14.5 % AO Workflow SS Hematocrit (Bld) [Volume fraction] 39.3 % Normal 37.0 - 47.0 % AO Workflow SS Hemoglobin (Bld) [Mass/Vol] 13.5 G/dL Normal 12.0 - 16.0 G/dL AO Workflow SS Lymphocyte, Absolute 1.7 103/mcL Normal 0.8 - 3 .9 10^3/mcL AO Workflow SS Lymphocytes/100 WBC (Bld) 26.1 % Normal 10.0 - 50.0 % AO Workflow SS MCH (RBC) [Entitic mass] 32.2 pg High 27.0 - 31.2 pg AO Workflow SS MCHC 34.3 G/dL Normal 33.0 - 37.0 G/dL AO Workflow SS MCV (RBC) [Entitic vol] 93.8 fL Normal 80.0 - 94.0 fL AO Workflow SS Monocyte, Absolute 0.4 103/mcL Normal 0.2 - 1.0 10^3/mcL AO Workflow SS Monocytes/100 WBC (Bld) 5.7 % Normal 1.7 - 13.0 % AO Workflow SS Neutrophil, Absolute 3.9 103/mcL Normal 2.9 - 6 .2 10^3/mcL AO Workflow SS Neutrophils/100 WBC (Bld) 59.1 % Normal 37.0 - 80.0 % AO Workflow SS Platelet mean volume (Bld) [Entitic vol] 8.6 fL Normal 7.4 - 10.4 fL AO Workflow SS Platelets (Bld) [#/Vol] 304 103/mcL Normal 130 - 400 10^3/mcL AO Workflow SS RBC (Bld) [#/Vol] 4.19 106/mcL Low 4.20 - 5.4 0 10^6/mcL AO Workflow SS WBC (Bld) [#/Vol] 6.6 103/mcL Normal 4.6 - 10.8 10^3/mcL AO Workflow SS US PELVIS NON-OB W/TRANSVAGI NALon 01-10-2024 US PELVIS NON-OB W/TRANSVAGINAL ORIGINAL EXAMINATION: TRANSVAGINAL PELVIC ULTRASOUND 01/10/2024 TECHNIQUE: Transvaginal pelvic ultrasound was performed. COMPARISON: None HISTORY: ORDERING SYSTEM PROVIDED HISTORY: Reason for Exam: abnormal uterine bleeding Menometrorrhagia FINDINGS: Measurements: Uterus: 10.4 x 5.3 x 3.6 cm Endometrial stripe: 15.4 mm Right Ovary:2.8 x 1.8 x 2.3 cm Left Ovary: 2.5 x 1.6 x 1.6 cm Ultrasound Findings: Uterus: 2 cm mass of colic fibroid noted within the myometrium. Endometrial stripe: Prominent endometrial stripe may reflect normal cyclic menstrual change. Right Ovary: 1.6 cm hemorrhagic cyst noted. Left Ovary: Left ovary is within normal limits. Free Fluid: No evidence of free fluid. IMPRESSION: 1. Prominent endometrial stripe may reflect normal cyclic menstrual change. 2. 1.6 cm hemorrhagic cyst right ovary. 3. 2 cm uterine fibroid. 4. 1.6 cm indeterminate ovarian cyst. If patient is pre-menopausal, recommend pelvic US follow-up in 6-12 weeks. Interpreted by: Lev Gold DO Preliminary Report By: Lev Gold DO Electronically signed By Lev Gold DO Dictated Date: 01/10/2024 2:23:47 PM Prelim Date: 01/10/2024 2:29:21 PM Sign Date: 01/10/2024 2:29:21 PM Ordering Provider: AGA Acuna [facility] ([place]) .Auto Diffon 01-05-2024 Basophil, Absolute 0.1 10 3/mcL Normal 0.0-0.2 Pending sale to [facility] ([place]) Comment on above: Performed By: #### C BC, LIPID, ADIFF, ANEU, CMP, GFR, TSH #### [address] [address] Basophils/100 WBC (Bld) 0.8 % Normal 0.0-2.5 [facility] ([place]) Comment on above: Performed By: #### C BC, LIPID, ADIFF, ANEU, CMP, GFR, TSH #### [place] [address] [place], [place] [address] Eosinophil, Absolute 0.6 10 3/mcL High 0.0-0.4 [facility] ([place]) Comment on above: Performed By: #### C BC, LIPID, ADIFF, ANEU, CMP, GFR, TSH #### [place] [address] [place], [place] [address] Eosinophils/100 WBC (Bld) 6.8 % Normal 0.0-7.0 [facility] ([place] Comment on above: Performed By: #### C BC, LIPID, ADIFF, ANEU, CMP, GFR, TSH #### [address] [address] Lymphocyte, Absolute 1.9 10 3/mcL Normal 0.8-3.9 [facility] ([place]) Comment on above: Performed By: #### C BC, LIPID, ADIFF, ANEU, CMP, GFR, TSH #### [address] [address] Lymphocytes/100 WBC (Bld) 22.5 % Normal 10.0-50.0 [facility] ([place] Comment on above: Performed By: #### C BC, LIPID, ADIFF, ANEU, CMP, GFR, TSH #### [address] [address] Monocyte, Absolute 0.5 10 3/mcL Normal 0.2-1.0 Pending sale to [facility] ([place]) Comment on above: Performed By: #### C BC, LIPID, ADIFF, ANEU, CMP, GFR, TSH #### [address] [address] Monocytes/100 WBC (Bld) 6.0 % Normal 1.7-13.0 [facility] ([place] Comment on above: Performed By: #### C BC, LIPID, ADIFF, ANEU, CMP, GFR, TSH #### [address] [address] Neutrophils/100 WBC (Bld) 63.9 % Normal 37.0-80.0 [facility] ([place] Comment on above: Performed By: #### C BC, LIPID, ADIFF, ANEU, CMP, GFR, TSH #### [address] [address] .GFRon 01-05-2024 GFR Non- 57 ml/min/1.73sqm Normal [facility] ([place]) Comment on above: Result Comment: GFR Population mean for , Non- Americans Ages 20-29 = 116 mL/min/1.73 sq.m. Ages 30-39 = 107 mL/min/1.73 sq.m. Ages 40-49 = 99 mL/min/1.73 sq.m. Ages 50-59 = 93 mL/min/1.73 sq.m. Ages 60-69 = 85 mL/min/1.73 sq.m. Ages 70+ = 75 mL/min/1.73 sq.m. Chronic Kidney Disease: Less than 60 mL/min/1.73 square meters End Stage Renal Disease: Less than 15 mL/min/1.73 square meters Performed By: #### C BC, LIPID, ADIFF, ANEU, CMP, GFR, TSH #### [address] [address] GFR 69 ml/min/1.73sqm Normal [facility] ([place] Comment on above: Result Comment: GFR Population mean for , Non- Americans Ages 20-29 = 116 mL/min/1.73 sq.m. Ages 30-39 = 107 mL/min/1.73 sq.m. Ages 40-49 = 99 mL/min/1.73 sq.m. Ages 50-59 = 93 mL/min/1.73 sq.m. Ages 60-69 = 85 mL/min/1.73 sq.m. Ages 70+ = 75 mL/min/1.73 sq.m. Chronic Kidney Disease: Less than 60 mL/min/1.73 square meters End Stage Renal Disease: Less than 15 mL/min/1.73 square meters Performed By: #### C BC, LIPID, ADIFF, ANEU, CMP, GFR, TSH #### [address] [address] .NEUABSon 01-05-2024 Neutrophil, Absolute 5.3 10 3/mcL Normal 2.9-6.2 [facility] ([place]) Comment on above: Performed By: #### C BC, LIPID, ADIFF, ANEU, CMP, GFR, TSH #### [address] [address] CBCon 01-05-2024 Erythrocyte distribution width (RBC) [Ratio] 12.9 % Normal 11.5-14.5 [facility] ([place]) Comment on above: Performed By: #### C BC, LIPID, ADIFF, ANEU, CMP, GFR, TSH #### [place] [address] Hematocrit (Bld) [Volume fraction] 40.7 % Normal 37.0-47.0 [facility] ([place] Comment on above: Performed By: #### C BC, LIPID, ADIFF, ANEU, CMP, GFR, TSH #### [place] [id number] Hgb 14.0 G/dL Normal 12.0-16.0 [facility] ([place] Comment on above: Performed By: #### C BC, LIPID, ADIFF, ANEU, CMP, GFR, TSH #### [place] [id number] MCH (RBC) [Entitic mass] 32.5 pg High 27.0-31.2 [facility] ([place] Comment on above: Performed By: #### C BC, LIPID, ADIFF, ANEU, CMP, GFR, TSH #### [place] [address] MCHC 34.4 G/dL Normal 33.0-37.0 [facility] ([place] Comment on above: Performed By: #### C BC, LIPID, ADIFF, ANEU, CMP, GFR, TSH #### [place] [id number] MCV (RBC) [Entitic vol] 94.4 fL High 80.0-94.0 [facility] ([place] Comment on above: Performed By: #### C BC, LIPID, ADIFF, ANEU, CMP, GFR, TSH #### [place] [id number] Platelet 291 10 3/mcL Normal 130-400 [facility] ([place] Comment on above: Performed By: #### C BC, LIPID, ADIFF, ANEU, CMP, GFR, TSH #### [place] [address] Platelet mean volume (Bld) [Entitic vol] 8.5 fL Normal 7.4-10.4 [facility] ([place] Comment on above: Performed By: #### C BC, LIPID, ADIFF, ANEU, CMP, GFR, TSH #### [address] [address] RBC 4.31 10 6/mcL Normal 4.20-5.40 [facility] ([place] Comment on above: Performed By: #### C BC, LIPID, ADIFF, ANEU, CMP, GFR, TSH #### [address] [address] WBC 8.3 10 3/mcL Normal 4.6-10.8 [facility] ([place] Comment on above: Performed By: #### C BC, LIPID, ADIFF, ANEU, CMP, GFR, TSH #### [address] [address] CMPon 01-05-2024 Albumin Level 3.6 G/dL Normal 3.5-5.0 [facility] ([place] Comment on above: Performed By: #### C BC, LIPID, ADIFF, ANEU, CMP, GFR, TSH #### [address] [address] Albumin/Globulin [Mass ratio] 1.1 {ratio} Normal 1.1-2.5 [facility] ([place] Comment on above: Performed By: #### C BC, LIPID, ADIFF, ANEU, CMP, GFR, TSH #### [address] [address] ALP [Catalytic activity/Vol] 108 U/L Normal 40-135 [facility] ([place] Comment on above: Performed By: #### C BC, LIPID, ADIFF, ANEU, CMP, GFR, TSH #### [address] [address] ALT [Catalytic activity/Vol] 20 U/L Normal 14-59 [facility] ([place] Comment on above: Performed By: #### C BC, LIPID, ADIFF, ANEU, CMP, GFR, TSH #### [address] [address] AST [Catalytic activity/Vol] 15 U/L Normal 10-40 [facility] ([place] Comment on above: Performed By: #### C BC, LIPID, ADIFF, ANEU, CMP, GFR, TSH #### [address] [address] Bili Total 0.6 mg/dL Normal 0.2-1.0 [facility] ([place] Comment on above: Result Comment: Use of this assay is not recommended for patients undergoing treatment with eltrombopag due to the potential for falsely elevated results. Performed By: #### C BC, LIPID, ADIFF, ANEU, CMP, GFR, TSH #### [address] [address] BUN/Creatinine Ratio 11 ratio Normal 7-27 Pending sale to [facility] ([place]) Comment on above: Performed By: #### C BC, LIPID, ADIFF, ANEU, CMP, GFR, TSH #### [address] [address] Calcium [Mass/Vol] 8.9 mg/dL Normal 8.4-10.2 [facility] ([place]) Comment on above: Performed By: #### C BC, LIPID, ADIFF, ANEU, CMP, GFR, TSH #### [address] [address] Chloride [Moles/Vol] 104 mmol/L Normal 98-107 Pending sale to [facility] ([place]) Comment on above: Performed By: #### C BC, LIPID, ADIFF, ANEU, CMP, GFR, TSH #### [address] [address] CO2 [Moles/Vol] 26 mmol/L Normal 22-29 [facility] ([place] Comment on above: Performed By: #### C BC, LIPID, ADIFF, ANEU, CMP, GFR, TSH #### [address] [address] Creatinine [Mass/Vol] 1.02 mg/dL Normal 0.55-1.02 [facility] ([place]) Comment on above: Performed By: #### C BC, LIPID, ADIFF, ANEU, CMP, GFR, TSH #### [address] [address] Electrolyte Balance 11.0 mEq/L Normal 4.0-15.0 [facility] ([place]) Comment on above: Performed By: #### C BC, LIPID, ADIFF, ANEU, CMP, GFR, TSH #### [address] [address] Globulin 3.3 G/dL Normal [facility] ([place] Comment on above: Performed By: #### C BC, LIPID, ADIFF, ANEU, CMP, GFR, TSH #### [address] [address] Glucose [Mass/Vol] 112 mg/dL High 70-105 [facility] ([place]) Comment on above: Performed By: #### C BC, LIPID, ADIFF, ANEU, CMP, GFR, TSH #### [address] [address] Potassium [Moles/Vol] 4.5 mmol/L Normal 3.5-5.1 formerly [facility] ([place]) Comment on above: Performed By: #### C BC, LIPID, ADIFF, ANEU, CMP, GFR, TSH #### [address] [address] Sodium [Moles/Vol] 141 mmol/L Normal 136-145 [facility] ([place]) Comment on above: Performed By: #### C BC, LIPID, ADIFF, ANEU, CMP, GFR, TSH #### [address] [address] Total Protein 6.9 G/dL Normal 6.4-8.2 [facility] ([place]) Comment on above: Performed By: #### C BC, LIPID, ADIFF, ANEU, CMP, GFR, TSH #### [address] [address] Urea nitrogen [Mass/Vol] 11 mg/dL Normal 7-18 [facility] ([place]) Comment on above: Performed By: #### C BC, LIPID, ADIFF, ANEU, CMP, GFR, TSH #### [place] [id number] LABORATORYOrdered By: SYSTEM SYSTEM on 01-05-2024 Albumin BCP dye [Mass/Vol] 3.6 G/dL Normal 3.5 - 5.0 G/dL AO ADM SS Albumin/Globulin [Mass ratio] 1.1 {ratio} Normal 1.1 - 2.5 ratio AO ADM SS ALP [Catalytic activity/Vol] 108 U/L Normal 40 - 135 U/L AO ADM SS ALT With P-5'-P [Catalytic activity/Vol] 20 U/L Normal 14 - 59 U/L AO ADM SS AST With P-5'-P [Catalytic activity/Vol] 15 U/L Normal 10 - 40 U/L AO ADM SS Basophil, Absolute 0.1 103/mcL Normal 0.0 - 0.2 10^3/mcL AO Workflow SS Basophils/100 WBC (Bld) 0.8 % Normal 0.0 - 2.5 % AO Workflow SS Bilirubin [Mass/Vol] 0.6 mg/dL Normal 0.2 - 1 .0 mg/dL AO ADM SS Comment on above: Interpretive Data: U se of this assay is not recommended for patients undergoing treatment with eltrombopag due to the potential for falsely elevated results. Calcium [Mass/Vol] 8.9 mg/dL Normal 8.4 - 10. 2 mg/dL AO ADM SS Chloride [Moles/Vol] 104 mmol/L Normal 98 - 10 7 mmol/L AO ADM SS CO2 [Moles/Vol] 26 mmol/L Normal 22 - 29 mmol/L AO ADM SS Creatinine [Mass/Vol] 1.02 mg/dL Normal 0.55 - 1.02 mg/dL AO ADM SS Electrolyte Balance 11.0 mEq/L Normal 4.0 - 15 .0 mEq/L AO ADM SS Eosinophil, Absolute 0.6 103/mcL High 0.0 - 0 .4 10^3/mcL AO Workflow SS Eosinophils/100 WBC (Bld) 6.8 % Normal 0.0 - 7.0 % AO Workflow SS Erythrocyte distribution width (RBC) [Ratio] 12.9 % Normal 11.5 - 14.5 % AO Workflow SS GFR/1.73 sq M.predicted among blacks MDRD (S/P/Bld) [Vol rate/Area] 69 ml/min/1.73sqm Invalid Interpretation Code AO Chemistry S Comment on above: Interpretive Data: GFR Population mean for , Non- Americans Ages 20-29 = 116 mL/min/1.73 sq.m. Ages 30-39 = 107 mL/min/1.73 sq.m. Ages 40-49 = 99 mL/min/1.73 sq.m. Ages 50-59 = 93 mL/min/1.73 sq.m. Ages 60-69 = 85 mL/min/1.73 sq.m. Ages 70+ = 75 mL/min/1.73 sq.m. Chronic Kidney Disease: Less than 60 mL/min/1.73 square meters End Stage Renal Disease: Less than 15 mL/min/1.73 square meters GFR/1.73 sq M.predicted among non-blacks MDRD (S/P/Bld) [Vol rate/Area] 57 ml/min/1.73sqm Invalid Interpretation Code AO Chemistry S Comment on above: Interpretive Data: GFR Population mean for , Non- Americans Ages 20-29 = 116 mL/min/1.73 sq.m. Ages 30-39 = 107 mL/min/1.73 sq.m. Ages 40-49 = 99 mL/min/1.73 sq.m. Ages 50-59 = 93 mL/min/1.73 sq.m. Ages 60-69 = 85 mL/min/1.73 sq.m. Ages 70+ = 75 mL/min/1.73 sq.m. Chronic Kidney Disease: Less than 60 mL/min/1.73 square meters End Stage Renal Disease: Less than 15 mL/min/1.73 square meters Globulin 3.3 G/dL Invalid Interpretation Code AO ADM SS Glucose [Mass/Vol] 112 mg/dL High 70 - 105 mg/dL AO ADM SS Hematocrit (Bld) [Volume fraction] 40.7 % Normal 37.0 - 47.0 % AO Workflow SS Hemoglobin (Bld) [Mass/Vol] 14.0 G/dL Normal 12.0 - 16.0 G/dL AO Workflow SS Lymphocyte, Absolute 1.9 103/mcL Normal 0.8 - 3 .9 10^3/mcL AO Workflow SS Lymphocytes/100 WBC (Bld) 22.5 % Normal 10.0 - 50.0 % AO Workflow SS MCH (RBC) [Entitic mass] 32.5 pg High 27.0 - 31.2 pg AO Workflow SS MCHC 34.4 G/dL Normal 33.0 - 37.0 G/dL AO Workflow SS MCV (RBC) [Entitic vol] 94.4 fL High 80.0 - 94.0 fL AO Workflow SS Monocyte, Absolute 0.5 103/mcL Normal 0.2 - 1.0 10^3/mcL AO Workflow SS Monocytes/100 WBC (Bld) 6.0 % Normal 1.7 - 13.0 % AO Workflow SS Neutrophil, Absolute 5.3 103/mcL Normal 2.9 - 6 .2 10^3/mcL AO Workflow SS Neutrophils/100 WBC (Bld) 63.9 % Normal 37.0 - 80.0 % AO Workflow SS Platelet mean volume (Bld) [Entitic vol] 8.5 fL Normal 7.4 - 10.4 fL AO Workflow SS Platelets (Bld) [#/Vol] 291 103/mcL Normal 130 - 400 10^3/mcL AO Workflow SS Potassium [Moles/Vol] 4.5 mmol/L Normal 3.5 - 5.1 mmol/L AO ADM SS Protein [Mass/Vol] 6.9 G/dL Normal 6.4 - 8.2 G/dL AO ADM SS RBC (Bld) [#/Vol] 4.31 106/mcL Normal 4.20 - 5.4 0 10^6/mcL AO Workflow SS Sodium [Moles/Vol] 141 mmol/L Normal 136 - 145 mmol/L AO ADM SS TSH Qn 2.25 m[IU]/L Normal 0.36 - 3.74 mcIU/mL AO ADM SS Urea nitrogen [Mass/Vol] 11 mg/dL Normal 7 - 18 mg/dL AO ADM SS Urea nitrogen/Creatinine [Mass ratio] 11 ratio Normal 7 - 27 ratio AO ADM SS WBC (Bld) [#/Vol] 8.3 103/mcL Normal 4.6 - 10.8 10^3/mcL AO Workflow SS LABORATORYOrdered By: Ashlee Fan on 01-05-2024 Cholesterol [Mass/Vol] 242 mg/dL High 0 - 200 mg/dL AO ADM SS Comment on above: Interpretive Data: C holesterol Reference Interval: Less than 200 Desirable 200-239 Borderline high risk 240 and above High risk Cholesterol in HDL [Mass/Vol] 55 mg/dL Normal 40 - 60 mg/dL AO ADM SS Cholesterol in LDL [Mass/Vol] 164 mg/dL High 0 - 130 mg/dL AO ADM SS Triglyceride [Mass/Vol] 114 mg/dL Normal 0 - 150 mg/dL AO ADM SS Comment on above: Interpretive Data: T riglyceride Reference Interval: Less than 150 Normal 150-199 Borderline high risk 200-499 High risk 500 or higher Very high risk LIPIDon 01-05-2024 Cholesterol [Mass/Vol] 242 mg/dL High 0-200 [facility] ([place]) Comment on above: Result Comment: Chol esterol Reference Interval: Less than 200 Desirable 200-239 Borderline high risk 240 and above High risk Performed By: #### C BC, LIPID, ADIFF, ANEU, CMP, GFR, TSH ####[address] [place], [place] [address] Cholesterol in HDL [Mass/Vol] 55 mg/dL Normal 40-60 [facility] ([place]) Comment on above: Performed By: #### C BC, LIPID, ADIFF, ANEU, CMP, GFR, TSH ####[address] [place], [place] [address] Cholesterol in LDL [Mass/Vol] 164 mg/dL High 0-130 [facility] ([place]) Comment on above: Performed By: #### C BC, LIPID, ADIFF, ANEU, CMP, GFR, TSH ####[address] [place], [place] [address] Triglyceride [Mass/Vol] 114 mg/dL Normal 0-150 [facility] ([place]) Comment on above: Result Comment: Trig lyceride Reference Interval: Less than 150 Normal 150-199 Borderline high risk 200-499 High risk 500 or higher Very high risk Performed By: #### C BC, LIPID, ADIFF, ANEU, CMP, GFR, TSH ####[address] [place], [place] [address] TSHon 01-05-2024 TSH Qn 2.25 m[IU]/L Normal 0.36-3.74 [facility] ([place]) Comment on above: Performed By: #### C BC, LIPID, ADIFF, ANEU, CMP, GFR, TSH #### [address] [address] [place] MAMMOGRAM SCREENING BILAT ERAL W/TOMOon 06-04-2023 [place] MAMMOGRAM SCREENING BILATERAL W/[place] ORIGINAL FROM: [address] [address] PROCEDURE FOR: YANA Kimberly BARBOZA [address] [place] [address] Home: PID#: [id number] Exam#: [id number] : 1970 Age: 53 TO: AGA HANKS APRN [place] [address] Fax: NO FAX EXAMINATION: SCREENING DIGITAL BILATERAL MAMMOGRAM WITH TOMOSYNTHESIS, 06/04/2023 7:55 am TECHNIQUE: Screening mammography of the bilateral breasts was performed with tomosynthesis. 2D standard and 3D tomosynthesis combination imaging performed through both breasts in the MLO and CC projection. Computer aided detection was utilized in the interpretation of this exam. COMPARISON: 06/03/2022, 06/02/2021 HISTORY: Breast cancer screening FINDINGS: BREAST DENSITY: Scattered fibroglandular tissue There are no significant masses or calcifications. IMPRESSION: No mammographic evidence of malignancy. Continued screening with annual mammograms is recommended. BIRADS: MAMMOGRAM BI-RADS: 1: Negative RECALL: 1 year screening RECALL TYPE: mammo LETTER SENT: Normal BI-RADS 1 and 2 Interpreted by: Parth Bah MD Preliminary Report By: Parth Bah MD Electronically signed By Parth Bah MD Dictated Date: 06/04/2023 7:43:30 PM Prelim Date: 06/04/2023 8:05:06 PM Sign Date: 06/04/2023 8:05:06 PM Ordering Provider: AGA HANKS Sliver Former: SINA PEREZ (R) (M) (CT) letter sent: Normal BI-RADS 1 and 2 Mammogram BI-RADS: 1 Negative Normal [facility] ([place]) Final Surgical Pathology Rep [facility] 07-31-2023 Final Surgical Pathology Report . Pathology Reports Accession: Collected Date/Time: Received Date/Time: Pathologist: [id number] 05/27/2023 14:22 EDT 05/28/2023 07:24 EDT LUIS M JORDAN MD Final Surgical Pathology Report DIAGNOSIS: COLON, 45-50 CM, POLYP: - TUBULAR ADENOMA CLINICAL INFORMATION: Procedure: COLONOSCOPY WITH POLYPECTOMY Preoperative diagnosis: SCREENING Postoperative diagnosis: SCREENING SPECIMEN: A COLON POLYP @ 45-50 CM GROSS DESCRIPTION: All parts labelled with patient name and [id number] Received in formalin labeled "colon polyp at 45-50 cm" is 1 tissue fragment measuring 0.3 x 0.2 cm. Debris also identified aggregating 0.6 x 0.2 x 0.1 cm. TS-1 Valeri Alex, Grossing Food Expeditor/ Dr. Carson Chávez, Pathologist Dictated by Valeri Alex MICROSCOPIC DESCRIPTION: The microscopic examination is performed, except in the case of Gross Only. Electronically Signed by Pathology Report verified by [facility] LUIS M JORDAN Sign out Date: 05/31/2023 09:34 Performing Lab: [facility], [address] [place] [address] Pathology Dept Disclaimer If ancillary studies were utilized, the following Laboratory Developed Test (LDT) disclaimer will apply: Under CLIA requirements, [facility]ology Laboratory is qualified to perform high complexity testing. For all ancillary stains, positive and negative controls stain appropriately. Performance characteristics of immunohistochemical and chromogenic in-situ hybridization tests have been determined by [facility]. These tests are used for clinical purposes, They should not be regarded as investigational or for research. Normal [facility] ([place]) LABORATORYOrdered By: Ray Myers on 04-21-2022 HPV Interp High Risk HPV Typing : NEGATIVEHPV types 16, 18, 31, 33, 35, 39, 45, 51, 52, 56, 58, 59, 66 and 68 DNA wereundetectable or below the pre-set threshold.The yelena High-Risk HPV DNA Test is not intended for use as a screening device forPap normal women under age 30 and is not intended to substitute for regular Papscreening.The yelena High-Risk HPV DNA Test is designed to augment existing methods for thedetection of cervical disease and should be used in conjunction with clinicalinformation derived from other diagnostic and screening tests, physical examinationsand full medical history in accordance with appropriate patient managementprocedures.N OTE: A negative result does not preclude the presence of HPV infection because resultsdepend on adequate specimen collection, absence of inhibitors and sufficientDNA to be detected. Invalid Interpretation Code See Interp HPVN Auto Viro/Sero SS Specimen source Nom (Unsp spec) Cervix (04/21/22 8:21 AM) Invalid Interpretation Code Auto Viro/Sero SS Vital Signs Date Time Vital Sign Value Performing Clinician Facility 05-15-2025 09:190400 Body height 172.72 cm Aga Hanks NAIL FEEDER-C Work Phone: [facility] 05-15-2025 09:19-0400 Body mass index (BMI) [Ratio] 26.4 kg/m2 Aga Hanks NAIL FEEDER-C Work Phone: [facility] 05-15-2025 09:19-0400 Body temperature 97.3 [degF] Aga Hanks NAIL FEEDER-C Work Phone: [facility] 05-15-2025 09:19-0400 Body weight 79.03 kg Aga Hanks NAIL FEEDER-C Work Phone: [facility] 05-15-2025 09:19-0400 Diastolic blood pressure 76 mm[Hg] Aga Hanks NAIL FEEDER-C Work Phone: [facility] 05-15-2025 09:19-0400 Heart rate 81 /min Aga Hanks NAIL FEEDER-C Work Phone: [facility] 05-15-2025 09:19-0400 Respiratory rate 17 /min Aga Hanks NAIL FEEDER-C Work Phone: [facility] 05-15-2025 09:19-0400 SaO2% (BldA) [Mass fraction] 100 % Aga Hanks NAIL FEEDER-C Work Phone: [facility] 05-15-2025 09:19-0400 Systolic blood pressure 115 mm[Hg] Aga Hanks NAIL FEEDER-C Work Phone: [facility] 02-16-2024 13:25-0400 Diastolic Blood Pressure Non-Invasive 83 mm[Hg] CAESAR GALLARDO MD [facility] 02-16-2024 13:25-0400 Heart rate 50 /min CAESAR GALLARDO MD [facility] 02-16-2024 13:25-0400 Respiratory rate 14 /min CAESAR GALLARDO MD [facility] 02-16-2024 13:25-0400 Systolic Blood Pressure Non-Invasive 138 mm[Hg] CAESAR GALLARDO MD [facility] 02-16-2024 12:55-0400 Diastolic Blood Pressure Non-Invasive 82 mm[Hg] CAESAR GALLARDO MD [facility] 02-16-2024 12:55-0400 Heart rate 55 /min CAESAR GALLARDO MD [facility] 02-16-2024 12:55-0400 Respiratory rate 14 /min CAESAR GALLARDO MD [facility] 02-16-2024 12:55-0400 Systolic Blood Pressure Non-Invasive 128 mm[Hg] CASEAR GALLARDO MD [facility] 02-16-2024 12:40-0400 Diastolic Blood Pressure Non-Invasive 81 mm[Hg] CAESAR GALLARDO MD [facility] 02-16-2024 12:40-0400 Heart rate 56 /min CAESAR GALLARDO MD [facility] 02-16-2024 12:40-0400 Respiratory rate 14 /min CAESAR GALLARDO MD [facility] 02-16-2024 12:40-0400 Systolic Blood Pressure Non-Invasive 148 mm[Hg] CAESAR GALLARDO MD [facility] 02-16-2024 12:30-0400 Body temperature 97.34 [degF] CAESAR GALLARDO MD [facility] 02-16-2024 12:25-0400 Respiratory Rate - Anes 4 br/min CAESAR GALLARDO MD [facility] 02-16-2024 12:20-0400 Respiratory Rate - Anes 16 br/min CAESAR GALLARDO MD [facility] 02-16-2024 12:15-0400 Body temperature 96.8 [degF] CAESAR GALLARDO MD [facility] 02-16-2024 12:15-0400 Respiratory Rate - Anes 13 br/min CAESAR GALLARDO MD [facility] 02-16-2024 10:49-0400 Body height 170 cm CAESAR GALLARDO MD [facility] 02-16-2024 10:49-0400 Body temperature 97.7 [degF] CAESAR GALLARDO MD [facility] 02-16-2024 10:49-0400 Body weight 85 kg CAESAR GALLARDO MD [facility] 02-16-2024 10:49-0400 Heart rate 88 /min CAESAR GALLARDO MD [facility] 02-09-2024 08:04-0400 Blood Pressure Cuff Size CAESAR GALLARDO MD [facility] 02-09-2024 08:04-0400 Blood Pressure Location CAESAR GALLARDO MD [facility] 02-09-2024 08:04-0400 Blood Pressure Method CAESAR GALLARDO MD [facility] 02-09-2024 08:04-0400 Body height 172.7 cm CAESAR GALLARDO MD [facility] 02-09-2024 08:04-0400 Body weight 83 kg CAESAR GALLARDO MD [facility] 02-09-2024 08:04-0400 Body weight 27.83 kg/m2 CAESAR GALLARDO MD [facility] 02-09-2024 08:04-0400 Diastolic Blood Pressure Non-Invasive 84 mm[Hg] CAESAR GALLARDO MD [facility] 02-09-2024 08:04-0400 Heart rate 83 /min CAESAR GALLARDO MD [facility] 02-09-2024 08:04-0400 Systolic Blood Pressure Non-Invasive 115 mm[Hg] CAESAR GALLARDO MD [facility] 05-27-2023 15:57-0400 Diastolic Blood Pressure Non-Invasive 87 1 CHRISTINE VILLEGAS MD [facility] 05-27-2023 15:57-0400 Heart rate 73 /min CHRISTINE VILLEGAS MD [facility] 05-27-2023 15:57-0400 Respiratory rate 14 /min CHRISTINE VILLEGAS MD [facility] 05-27-2023 15:57-0400 Systolic Blood Pressure Non-Invasive 138 1 CHRISTINE VILLEGAS MD [facility] 05-27-2023 15:45-0400 Diastolic Blood Pressure Non-Invasive 85 1 CHRISTINE VILLEGAS MD [facility] 05-27-2023 15:45-0400 Heart rate 71 /min CHRISTINE VILLEGAS MD [facility] 05-27-2023 15:45-0400 Respiratory rate 12 /min CHRISTINE VILLEGAS MD [facility] 05-27-2023 15:45-0400 Systolic Blood Pressure Non-Invasive 137 1 CHRISTINE VILLEGAS MD [facility] 05-27-2023 15:30-0400 Diastolic Blood Pressure Non-Invasive 94 1 CHRISTINE VILLEGAS MD [facility] 05-27-2023 15:30-0400 Heart rate 68 /min CHRISTINE VILLEGAS MD [facility] 05-27-2023 15:30-0400 Respiratory rate 12 /min CHRISTINE VILLEGAS MD [facility] 05-27-2023 15:30-0400 Systolic Blood Pressure Non-Invasive 136 1 CHRISTINE VILLEGAS MD [facility] 05-27-2023 15:15-0400 Body temperature 98.42 [degF] CHRISTINE VILLEGAS MD [facility] 05-27-2023 15:10-0400 Respiratory Rate - Anes 22 br/min CHRISTINE VILLEGAS MD [facility] 05-27-2023 15:05-0400 Respiratory Rate - Anes 22 br/min CHRISTINE VILLEGAS MD [facility] 05-27-2023 15:00-0400 Respiratory Rate - Anes 25 br/min CHRISTINE VILLEGAS MD [facility] 05-27-2023 12:19-0400 Blood Pressure Location CHRISTINE VILLEGAS MD [facility] 05-27-2023 12:19-0400 Body height 172.7 cm CHRISTINE VILLEGAS MD [facility] 05-27-2023 12:19-0400 Body temperature 98.06 [degF] CHRISTINE VILLEGAS MD [facility] 05-27-2023 12:19-0400 Body weight 28.2 kg/m2 CHRISTINE VILLEGAS MD [facility] 05-27-2023 12:19-0400 Body weight 84.1 kg CHRISTINE VILLEGAS MD [facility] 05-27-2023 12:19-0400 Heart rate 76 /min CHRISTINE VILLEGAS MD [facility] Encounters Encounter Date Encounter Type Care Provider Facility Start: 05-22-2025 ambulatory Kelly Norris y:[facility] Start: 05-15-2025 End: 05-15-[address] Kelly Gates MD -[facility] Work Phone: Start: 05-15-2025 End: 05-15-2025 ambulatory Aga Hanks NAIL FEEDER-C Work Phone: -[facility] Start: 05-08-2025 End: 05-08-2025 ambulatory AGA HANKS ALLERGY NURSE-DRAWING KILN SUPERVISOR Facility:[facility] Start: 05-08-2025 End: 05-08-2025 Patient encounter procedure AGA HANKS ALLERGY NURSE-DRAWING KILN SUPERVISOR [facility] Start: 2025 End: 05-05-2025 ambulatory AGA Montiel DEMARIO ALLERGY NURSE-DRAWING KILN SUPERVISOR Facility:[facility] Start: 2025 End: 05-05-2025 Outreach Lab AGA HANKS ALLERGY NURSE-DRAWING KILN SUPERVISOR [facility] Start: 2025 End: 2025 ambulatory AGA Montiel DEMARIO ALLERGY NURSE-DRAWING KILN SUPERVISOR Facility:[facility] Start: 2025 End: 2025 Patient encounter procedure AGA HANKS ALLERGY NURSE-DRAWING KILN SUPERVISOR [facility] Start: 10-11-2024 End: 10-15-2024 ambulatory ESTEFANI WARD ALLERGY NURSE-DRAWING KILN SUPERVISOR Facility:[facility] Start: 02-16-2024 End: 02-16-2024 ambulatory CAESAR GALLARDO MD Facility:[facility] Start: 02-16-2024 End: 02-16-2024 SAME DAY STAY CAESAR GALLARDO MD [facility] Start: 02-09-2024 End: 02-09-2024 Admission to establishment CAESAR GALLARDO MD [facility] Start: 02-09-2024 End: 02-09-2024 ambulatory CAESAR GALLARDO MD Facility:[facility] Start: 01-10-2024 End: 01-10-2024 ambulatory AGA S DEMARIO ALLERGY NURSE-DRAWING KILN SUPERVISOR Facility:[facility] Start: 01-05-2024 End: 01-05-2024 ambulatory AGA Montiel DEMARIO ALLERGY NURSE-DRAWING KILN SUPERVISOR Facility:[facility] Start: 01-05-2024 End: 01-05-2024 Patient encounter procedure AGA HANKS ALLERGY NURSE-DRAWING KILN SUPERVISOR [facility] Start: 06-04-2023 End: 06-04-2023 ambulatory AGA HANKS ALLERGY NURSE-DRAWING KILN SUPERVISOR Facility:[facility] Start: 06-04-2023 End: 06-04-2023 Patient encounter procedure AGA HANKS ALLERGY NURSE-DRAWING KILN SUPERVISOR [facility] Start: 05-27-2023 End: 05-27-2023 ambulatory AGA HANKS ALLERGY NURSE-DRAWING KILN SUPERVISOR Facility:[facility] Start: 05-27-2023 End: 05-27-2023 Minor Procedure CHRISTINE VILLEGAS MD [facility] Start: 07-27-2022 End: 08-18-2022 Physical therapy management AGA Montiel DEMARIO ALLERGY NURSE-DRAWING KILN SUPERVISOR [facility] Start: 06-03-2022 End: 06-03-2022 Patient encounter procedure AGA HANKS ALLERGY NURSE-DRAWING KILN SUPERVISOR [facility] Start: 04-21-2022 End: 04-25-2022 Outreach Lab AGA HANKS ALLERGY NURSE-DRAWING KILN SUPERVISOR [facility] Procedures Date Procedure Procedure Detail Performing Clinician Start: 02-16-2024 Hysteroscopy with biopsy CAESAR GALLARDO MD Hysteroscopy CAESAR GALLARDO MD Comment on above: WITH DILATION AND CU RATTAGE Sinus (morphologic abnormality) CHRISTINE VILLEGAS MD Structure of wisdom tooth (body structure) CAESAR GALLARDO MD Plan of Treatment Date Care Activity Detail [facility] Immun[facility] Immunization Date Immunization Notes Care Provider Fa cility 03-23-2022 SARS-CoV-2 (COVID-19 ) mRNA-1863 vaccine AGA HANKS ALLERGY NURSE-DRAWING KILN SUPERVISOR [facility] 08-31-2021 SARS-CoV-2 (COVID-19 ) mRNA-1273 vaccine AGA HANKS ALLERGY NURSE-DRAWING KILN SUPERVISOR [facility] Comment on above: Result Comment: 2021: [id number] 01-24-2021 COVID-19, mRNA, LNP- S, PF, 100 mcg or 50 mcg dose; Translations: [Moderna COVID-19 Vaccine] AGA CARABALLOMER ALLERGY NURSE-DRAWING KILN SUPERVISOR [facility] 12-27-2020 COVID-19, mRNA, LNP- S, PF, 100 mcg or 50 mcg dose; Translations: [Moderna COVID-19 Vaccine] AGA CARABALLOMER ALLERGY NURSE-DRAWING KILN SUPERVISOR [facility] 09-21-2014 tetanus toxoid, redu hiren diphtheria toxoid, and acellular pertussis vaccine, adsorbed AGA HANKS ALLERGY NURSE-DRAWING KILN SUPERVISOR [facility] Payers Date Payer Category Payer Self-pay 2022 Private Health Insurance [id number] 2007 Unknown [id number] 1970 Unknown [id number] 2.16.8 [id number] 1970 Unknown [id number] 2.16.8 [id number] 1970 Unknown [id number] 2.16.8 [id number] 1970 Unknown [id number] 2.16.8 [id number] 1970 Unknown [id number] 2.16.8 [id number] 1970 Unknown [id number] 2.16.8 [id number] 1970 Unknown [id number] 2.16. [id number] 1970 Unknown [id number] 2.16. [id number] 1970 Unknown [id number] 2.16. [id number] 1970 Unknown [id number] 2.16.8 [id number] Unknown [id number] 2.16.8 [id number] Unknown [id number] 2.16.8 [id number] Social History Date Type Detail Facility Start: 04-04-2020 End: 05-15-2025 Tobacco smoking status Never smoked tobacco (finding) [facility] Start: 1970 Sex Assigned At Female A [facility] Sexual Orientation [facility] Start: 12-27-2019 Sex Female (finding) [facility] Functional Status Date Assessment Result Facility 02-16-2024 Functional Status bilateral knee high doris lied/on [facility] 02-16-2024 Functional Status Maintained [facility] 02-09-2024 Functional Status Sensory Deficits None [facility] 05-27-2023 Functional Status Awake, Resting [facility] 05-27-2023 Functional Status [facility] 07-27-2022 Functional Status Home Living Ad ditional Information OBJECTIVE Posture: forward head and shoulder posture, scoliosis Gait: WNL Transfers: WNL Sensation: no abnomraltiies or asymmetries to report Reflexes: NT Edema: none AROM: mod restriciton bilat lat flexion, mod restriction extension Palpation: tightness L musculature of posterior neck Deep cervical flexor endurance test: 5 sec [facility] Mental Status Date Assessment Result Facility 02-16-2024 Mental Status Orientation Oriented x 4 [facility] 02-16-2024 Mental Status [facility] 05-27-2023 Mental Status Oriented x 4 [facility] 05-27-2023 Mental Status [facility] Clinical Notes 04-22-2023 to 10-13-2024 Note Date & Type Note Facility 10-13-2024 Note . MICRO - Microbiology PROCEDURE: Throat Culture [*1] SOURCE: Throat BODY SITE: COLLECTED DATE/TIME: 10/11/2024 11:45 EST RECEIVED DATE/TIME: 10/11/2024 19:20 EST START DATE/TIME: 10/11/2024 19:20 EST FREE TEXT SOURCE: FINAL REPORTS Final Report [] Verified Date/Time/Personnel: 10/13/2024 11:18 EST Normal throat ming present Sensitivity Testing: Not Indicated PRELIMINARY REPORTS Preliminary Report [] Verified Date/Time/Personnel: 10/12/2024 11:56 EST Culture results pending. Performing Locations *1: This test was performed at: [address], [id number] [place] [address] 02-16-2024 Hospital Discharg e instructions Patient Education 02/16/2024 13:36:13 General Anesthesia, Adult, Care After General Anesthesia, Adult, Care After This sheet gives you information about how to care for yourself after your procedure. Your health care provider may also give you more specific instructions. If you have problems or questions, contact your health care provider. What can I expect after the procedure? After the procedure, the following side effects are common: Pain or discomfort at the IV site. Nausea. Vomiting. Sore throat. Trouble concentrating. Feeling cold or chills. Weak or tired. Sleepiness and fatigue. Soreness and body aches. These side effects can affect parts of the body that were not involved in surgery. Follow these instructions at home: For at least 24 hours after the procedure: Have a responsible adult stay with you. It is important to have someone help care for you until you are awake and alert. Rest as needed. Do not: ?Participate in activities in which you could fall or become injured. ?Drive. ?Use heavy machinery. ?Drink alcohol. ?Take sleeping pills or medicines that cause drowsiness. ?Make important decisions or sign legal documents. ?Take care of children on your own. Eating and drinking Follow any instructions from your health care provider about eating or drinking restrictions. When you feel hungry, start by eating small amounts of foods that are soft and easy to digest (bland), such as toast. Gradually return to your regular diet. Drink enough fluid to keep your urine pale yellow. If you vomit, rehydrate by drinking water, juice, or clear broth. General instructions If you have sleep apnea, surgery and certain medicines can increase your risk for breathing problems. Follow instructions from your health care provider about wearing your sleep device: ?Anytime you are sleeping, including during daytime naps. ?While taking prescription pain medicines, sleeping medicines, or medicines that make you drowsy. Return to your normal activities as told by your health care provider. Ask your health care provider what activities are safe for you. Take frad-dpg-czalhzw and prescription medicines only as told by your health care provider. If you smoke, do not smoke without supervision. Keep all follow-up visits as told by your health care provider. This is important. Contact a health care provider if: You have nausea or vomiting that does not get better with medicine. You cannot eat or drink without vomiting. You have pain that does not get better with medicine. You are unable to pass urine. You develop a skin rash. You have a fever. You have redness around your IV site that gets worse. Get help right away if: You have difficulty breathing. You have chest pain. You have blood in your urine or stool, or you vomit blood. Summary After the procedure, it is common to have a sore throat or nausea. It is also common to feel tired. Have a responsible adult stay with you for the first 24 hours after general anesthesia. It is important to have someone help care for you until you are awake and alert. When you feel hungry, start by eating small amounts of foods that are soft and easy to digest (bland), such as toast. Gradually return to your regular diet. Drink enough fluid to keep your urine pale yellow. Return to your normal activities as told by your health care provider. Ask your health care provider what activities are safe for you. This information is not intended to replace advice given to you by your health care provider. Make sure you discuss any questions you have with your health care provider. Document Released: 01/24/2002 Document Revised: 10/21/2018 Document Reviewed: 06/03/2018 [employer] Patient Education 2020 [employer]. 02/16/2024 13:35:38 Hysteroscopy, Care After Hysteroscopy, Care After This sheet gives you information about how to care for yourself after your procedure. Your health care provider may also give you more specific instructions. If you have problems or questions, contact your health care provider. What can I expect after the procedure? After the procedure, it is common to have: Cramping. Bleeding. This can vary from light spotting to menstrual-like bleeding. Follow these instructions at home: Activity Rest for 1 2 days after the procedure. Do not douche, use tampons, or have sex for 2 weeks after the procedure, or until your health care provider approves. Do not drive for 24 hours after the procedure, or for as long as told by your health care provider. Do not drive, use heavy machinery, or drink alcohol while taking prescription pain medicines. Medicines Take loha-cmv-igqmsha and prescription medicines only as told by your health care provider. Do not take aspirin during recovery. It can increase the risk of bleeding. General instructions Do not take baths, swim, or use a hot tub until your health care provider approves. Take showers instead of baths for 2 weeks, or for as long as told by your health care provider. To prevent or treat constipation while you are taking prescription pain medicine, your health care provider may recommend that you: ?Drink enough fluid to keep your urine clear or pale yellow. ?Take kkza-iri-gzqvlyo or prescription medicines. ?Eat foods that are high in fiber, such as fresh fruits and vegetables, whole grains, and beans. ?Limit foods that are high in fat and processed sugars, such as fried and sweet foods. Keep all follow-up visits as told by your health care provider. This is important. Contact a health care provider if: You feel dizzy or lightheaded. You feel nauseous. You have abnormal vaginal discharge. You have a rash. You have pain that does not get better with medicine. You have chills. Get help right away if: You have bleeding that is heavier than a normal menstrual period. You have a fever. You have pain or cramps that get worse. You develop new abdominal pain. You faint. You have pain in your shoulders. You have shortness of breath. Summary After the procedure, you may have cramping and some vaginal bleeding. Do not douche, use tampons, or have sex for 2 weeks after the procedure, or until your health care provider approves. Do not take baths, swim, or use a hot tub until your health care provider approves. Take showers instead of baths for 2 weeks, or for as long as told by your health care provider. Report any unusual symptoms to your health care provider. Keep all follow-up visits as told by your health care provider. This is important. This information is not intended to replace advice given to you by your health care provider. Make sure you discuss any questions you have with your health care provider. Document Released: 08/08/2014 Document Revised: 09/30/2018 Document Reviewed: 11/16/2017 [employer] Patient Education 2020 [employer]. Follow Up Care 01/19/2024 09:57:55 With:CAESAR GALLARDO Address: [address] [place] [address] [facility] [place] [address]- [phone] Business (1) When: Unknown Comments:CALL THE OFFICE AND MAKE AN APPOINTMENT FOR 2 WEEKS FROM TODAY. 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 Known complex ovarian cyst, awaits FU scan. Was doing well while on BC but stopped taking last April/May. History of Present Illness 53 y.o. WF , LMP 12/27. Was on OCPs for decades, and decided to stop assuming she was done with periods. 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 abnormal bleeding for a few months, last one pretty " vicious". History of HPV years ago. Quit taking OCPs in -. Nothing till Oct 2 periods, 2nd heavy, Hilton heavy, Dec wnl, then a second,, with last one very heavy for 2 weeks, and new onset of pain. Review of Systems GENERAL: Energy level nromal Weight stable [] Sleeps poorlyhard to stay asleep. Mood: more stressed recently. 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 . Achy in pelvis SEXUALITY: NA as not sexually active recently. GASTROINTESTINAL Appetite: Good Abdominal pain: None Bowel movements: Regular, no change URINARY: Patient denies leakage due to activity . No dysuria. No . No urgency. No sensation of incomplete voiding. No nocturia. AFTER 50: Colonscopy 06/23 - polyp benign removed. Physical Exam ALLERGIES: (1) sulfa drug Social History Smoking Status - 08/26/2018 Never smoker Alcohol Use: Current. Frequency: 1-2 times per year., 04/04/2020 Home/Environment Domestic Concerns: None., 05/27/2023 Nutrition/Health Type of diet: Regular. Caffeine intake amount: rare., 05/27/2023 Substance Abuse Use: Never., 04/21/2022 Tobacco Nicotine Use: Never (less than 100 in lifetime)., 04/04/2020 Family History Cardiovascular disease: Mother and Father. Coronary artery disease: Brother. Diabetes: Mother. Heart attack: Mother. Stroke: Mother and Father. 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 Middle aged WF in NAD GENERAL: Well nourished ; no acute distress. ASSISTIVE DEVICES: None . PSYCHIATRIC: Alert and oriented x 3 , cooperative , mood normal , affect normal . HEAD: Normocephalic, nontraumatic head. ENT: Pupils equal, round, and reactive to light; conjunctiva clear bilaterally . Lids within normal limits . NECK: Supple, no lymphadenopathy, No thyromegaly noted. LYMPH: No cervical lymphadenopathy. No axillary lymphadenopathy. No inguinal lymphadenopathy. BREAST: def CARDIAC: Regular rate, regular rhythm, no murmurs noted. RESPIRATORY: Regular rate and depth; no distress; RIGHT lung clear , LEFT lung clear . Breath sounds normal . ABDOMEN: Soft , nontender . Normal bowel sounds. No organomegaly GENITOURINARY: Vulva within normal limits . No urethral discharge. No palpable inguinal hernia. Vaginal mucosa within normal limits . Cervix normal without discharge or tenderness . Bimanual exam unremarkable Uterus anteverted, Adnexae mobile, non tender, no masses. No rectocele. No cystocele. Anus: no hemorrhoids, no fistulae. Small uterus EXTREMITIES: No trace lower extremity pitting edema. No lymphedema. Dorsalis Pedis pulse +2/4 blaterally . Posterior Tibialis pulse +2/4 blaterally . Radial pulse +2/4 blaterally NEURO: Cranial Nerves II-XII grossly intact; speech normal MUSCULOSKELETAL: Gait normal . No scoliosis. No CVAT DERM: Warm and dry . Normal turgor. No observed exanthem. No significant dandruff. Assessment/Plan 1. Abnormal uterine bleeding (AUB) Prompted by discontinuing OCPs before confirming menopause. Discussed need to sample endometrium pros and cons of biopsy patient probably be adequate in this case given it endometrial stripe take several months to get her bleeding to normalize. She is planning to travel I did explain that D&C anesthesia minimal and clear of the lining so that she started her control pills again wanted things to sleep. Of note is that we need to confirm that endometrial tissue is normal at this time to help with the decision for management. I am hoping that she can go back on her low-dose control pill, through menopause. 2. Anovulatory bleeding most likely. 3. Abnormal endometrial ultrasound quite thick. 4. Menopausal symptoms but appears to be ovulating sporadically - hence complex cyst appearance. 5. Complex ovarian cyst for FU, given 1.6 cm size, likely to resolve. Problem List/Past Medical History Ongoing Abnormal uterine bleeding (AUB) Bee sting allergy Cellulitis of elbow Contraceptive management Hyperlipidemia Migraines Neck pain Olecranon bursitis, left elbow Positive colorectal cancer screening using Cologuard test Screening for breast cancer Screening for cervical cancer Screening for colon cancer TMJ syndrome Well adult exam Well woman exam Historical No qualifying data Procedure/Surgical History Sinus Allergies sulfa drug Future Appointments Appointment Date:03/01/2024 01:00:00 PM Scheduled Provider:CAESAR GALLARDO MD Location:[facility] Appointment Type: OV Future Scheduled Tests Laboratory* Lipid Profile 04/22/23 * Complete Metabolic Panel 04/22/23 [facility] 04-17-2024 Note Discharge Instructions Thank you for allowing [facility] to assist you with your healthcare needs. The following is importantdischarge information regarding your hospital visit. 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 Where: [address] [facility] [address] [facility] [place] [address]- [phone] Business (1) The Following Activity and Diet Have Been Ordered for You No qualifying data available. No qualifying data available. Allergies sulfa drug Medications Please ask your primary doctor or pharmacist before taking any other medication not listed, including over the counter drugs, herbal medications, vitamins and or supplements as they may interact withur home medications. What How Much When Why Instructions Last Dose New acetaminophen (acetaminophen 325 mg oral capsule) 650 Milligram by mouth Every 6 hours Pickup at [facility]/pharmacy #[id number] New ibuprofen (IBU 600 mg oral tablet) 1 tab(s) by mouth Every 6 hours Pickup at [facility]/pharmacy #[id number] 1:30 New oxyCODONE (oxyCODONE 5 mg oral tablet ( IMMEDIATE release )) 1 tab(s) by mouth Every 6 hours Acute post-operative pain Status post hysteroscopic polypectomy Duration: 1 Days Pickup at [facility]/pharmacy #[id number] Unchanged EPINEPHrine (EpiPen 2-Abhijit 0.3 mg injectable kit) 0.3 Milligram Intramuscular As Directed as needed for Allergic reaction Unchanged rizatriptan (rizatriptan 10 mg oral tablet) See instructions TAKE 1 TABLET BY MOUTH ONCE NEEDED FOR MIGRAINE HEADACHE Pharmacy Information [facility]/pharmacy #[id number]: [address], [place] [id number] [phone] Please take this list to your next doctor s visit. Bring all medications you take, including over the counter medications, herbals and other supplements with you to your doctor s visit. Patients and families are reminded to discard old lists and to update any records with all medication providers or retail pharmacies. Education Materials General Anesthesia, Adult, Care After This sheet gives you information about how to care for yourself after your procedure. Your health care provider may also give you more specific instructions. If you have problems or questions, contact your health care provider. What can I expect after the procedure? After the procedure, the following side effects are common: Pain or discomfort at the IV site. Nausea. Vomiting. Sore throat. Trouble concentrating. Feeling cold or chills. Weak or tired. Sleepiness and fatigue. Soreness and body aches. These side effects can affect parts of the body that were not involved in surgery. Follow these instructions at home: For at least 24 hours after the procedure: Have a responsible adult stay with you. It is important to have someone help care for you until youare awake and alert. Rest as needed. Do not: ? Participate in activities in which you could fall or become injured. ? Drive. ? Use heavy machinery. ? Drink alcohol. ? Take sleeping pills or medicines that cause drowsiness. ? Make important decisions or sign legal documents. ? Take care of children on your own. Eating and drinking Follow any instructions from your health care provider about eating or drinking restrictions. When you feel hungry, start by eating small amounts of foods that are soft and easy to digest (bland), such as toast. Gradually return to your regular diet. Drink enough fluid to keep your urine pale yellow. If you vomit, rehydrate by drinking water, juice, or clear broth. General instructions If you have sleep apnea, surgery and certain medicines can increase your risk for breathing problems. Follow instructions from your health care provider about wearing your sleep device: ? Anytime you are sleeping, including during daytime naps. ? While taking prescription pain medicines, sleeping medicines, or medicines that make you drowsy. Return to your normal activities as told by your health care provider. Ask your health care provider what activities are safe for you. Take xtay-tlj-edsdkdz and prescription medicines only as told by your health care provider. If you smoke, do not smoke without supervision. Keep all follow-up visits as told by your health care provider. This is important. Contact a health care provider if: You have nausea or vomiting that does not get better with medicine. You cannot eat or drink without vomiting. You have pain that does not get better with medicine. You are unable to pass urine. You develop a skin rash. You have a fever. You have redness around your IV site that gets worse. Get help right away if: You have difficulty breathing. You have chest pain. You have blood in your urine or stool, or you vomit blood. Summary After the procedure, it is common to have a sore throat or nausea. It is also common to feel tired. Have a responsible adult stay with you for the first 24 hours after general anesthesia. It is important to have someone help care for you until you are awake and alert. When you feel hungry, start by eating small amounts of foods that are soft and easy to digest (bland), such as toast. Gradually return to your regular diet. Drink enough fluid to keep your urine pale yellow. Return to your normal activities as told by your health care provider. Ask your health care provider what activities are safe for you. This information is not intended to replace advice given to you by your health care provider. Make sure you discuss any questions you have with your health care provider. Document Released: 01/24/2002 Document Revised: 10/21/2018 Document Reviewed: 06/03/2018 [email or web address] Patient Education 2020 [employer] Hysteroscopy, Care After This sheet gives you information about how to care for yourself after your procedure. Your health care provider may also give you more specific instructions. If you have problems or questions, contact your health care provider. What can I expect after the procedure? After the procedure, it is common to have: Cramping. Bleeding. This can vary from light spotting to menstrual-like bleeding. Follow these instructions at home: Activity Rest for 1 2 days after the procedure. Do not douche, use tampons, or have sex for 2 weeks after the procedure, or until your health care provider approves. Do not drive for 24 hours after the procedure, or for as long as told by your health care provider. Do not drive, use heavy machinery, or drink alcohol while taking prescription pain medicines. Medicines Take fukr-ofh-ckfgimi and prescription medicines only as told by your health care provider. Do not take aspirin during recovery. It can increase the risk of bleeding. General instructions Do not take baths, swim, or use a hot tub until your health care provider approves. Take showers instead of baths for 2 weeks, or for as long as told by your health care provider. To prevent or treat constipation while you are taking prescription pain medicine, your health care provider may recommend that you: ? Drink enough fluid to keep your urine clear or pale yellow. ? Take gfab-dte-mxyhumi or prescription medicines. ? Eat foods that are high in fiber, such as fresh fruits and vegetables, whole grains, and beans. ? Limit foods that are high in fat and processed sugars, such as fried and sweet foods. Keep all follow-up visits as told by your health care provider. This is important. Contact a health care provider if: You feel dizzy or lightheaded. You feel nauseous. You have abnormal vaginal discharge. You have a rash. You have pain that does not get better with medicine. You have chills. Get help right away if: You have bleeding that is heavier than a normal menstrual period. You have a fever. You have pain or cramps that get worse. You develop new abdominal pain. You faint. You have pain in your shoulders. You have shortness of breath. Summary After the procedure, you may have cramping and some vaginal bleeding. Do not douche, use tampons, or have sex for 2 weeks after the procedure, or until your health care provider approves. Do not take baths, swim, or use a hot tub until your health care provider approves. Take showers instead of baths for 2 weeks, or for as long as told by your health care provider. Report any unusual symptoms to your health care provider. Keep all follow-up visits as told by your health care provider. This is important. This information is not intended to replace advice given to you by your health care provider. Make sure you discuss any questions you have with your health care provider. Document Released: 08/08/2014 Document Revised: 09/30/2018 Document Reviewed: 11/16/2017 [email or web address] Patient Education 2020 [employer] Additional Information V[employer]IN[employer]! IT SAVES LIVES! Members of the community who have not yet received the COVID-19 vaccine and would like to receive it can visit one of [facility] vaccine clinics. There are many vaccine clinic locations within the [facility]. For locations and available times, please visit [email or web address] It is important to note that some COVID mobile vaccine clinics are held outdoors and may be canceled in rainy or stormy conditions. To learn more about pediatric vaccinations (ages 5-11), we invite you to visit the [facility] webpage. [email or web address] learn more about the COVID-19 vaccine, we invite you to visit the CDC website for a list of frequently asked questions.https://www.cdc.gov/coronavirus/2019-ncov/vaccines/faq.html [employer] Patient Portal Access Instructions: Stay connected with your healthcare team and access your personal medical information anytime with the [employer] Patient Portal. Please follow the directions below to create your [employer] account: 1.Access the email account you provided upon registration to the hospital/physician office.2.Look for an invitation email from [facility].3.Open the email and access the invitation link: AcceptInvitation to [employer].4.Fill in the required beck to create your account. To access your account, visit [email or web address]. Click the blue button labeled "Access Patient Portal" and then log in with the username and password that you created in the steps above. You will be able to view your test results, lab results, a summary of your visits, upcoming appointments and more. There is also a convenient messaging option where you can send secure messages to your p javedvider. In addition, you will have the ability to download any documents or summaries to your computer and/or send the information securely to a physician. Remember that your healthcare information is confidential, so carefully consider who you will allowto register on the [facility] for access to your information. You can also access the [place] [facility] Patient Portal on the [place] [facility] doris. Simply click on "Patient Portal" and then log into your account. If you would like to receive a full copy of your medical records, please contact the [facility] Medical Records Department by calling [phone], Wednesday through Wednesday between 8 a.m. and 4:30 p.m. HOW TO SAFELY DISPOSE OF PRESCRIPTION MEDICATIONS Please use one of the following methods to safely dispose of your unused medications. 1.Use a drug disposal kit: the drug disposal pouch allows you to safely discard your old and unuseddrugs. Ask your nurse to give you one when you are discharged.2.Visit a local take-back location: Many local pharmacies and police departments have programs that collect old and unwanted prescriptiondrugs. Call your local pharmacy or go to [email or web address] to find one close to you.3.Make use of household items: Use cat litter or old coffee grounds to dispose medications if other options arenot available. Mix your drugs with these household products, seal them in an airtight container andthrow it into the garbage. Call [facility]: [phone] to be sure your drugs can be disposed of in this way. Some medicines may require a different approach.4.Never flush your medications down the toilet. IF YOU HAVE BEEN PRESCRIBED AN OPIOID FOR PAIN If you have been prescribed an opioid (such as hydrocodone, oxycodone or morphine), it is critical to understand the possible side effects and risks of opioid pain medications. Even when taken as directed, opioids can have several side effects including: Tolerance, meaning you might need to take more of a medication for the same pain relief. Nausea, vomiting and/or constipation. Sleepiness, dizziness, dry mouth, confusion, depression or itching. Physical dependence, meaning you have withdrawal symptoms when a medication is stopped, can develop within a few days. KNOW YOUR RESPONSIBILITIES It is important to know exactly how much and how often to take the opioid pain medications you are prescribed. Never take opioids in higher amounts or more often than prescribed. Do not combine opioids with alcohol or other drugs that cause drowsiness, such as benzodiazepines, also known as benzos, including diazepam and alprazolam, muscle relaxants or sleep aids. Never sell or share prescription opioids. This is illegal. Store opioids in a secure place and out of reach of others (including children, family, friends and visitors). The last page of this document has been signed and retained as a CHART COPY. Signatures Patient Education Materials General Anesthesia, Adult, Care After Hysteroscopy, Care After Medication Leaflets My discharge plan and instructions have been reviewed and explained to me and I,YANA BARBOZA understand my current condition and have read and understand these discharge instructions. I have received a written copy of the plan/instructions. If I have questions, I am aware that I should contact my doctor. 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 Assessment Postanesthesia assessment Vitals: Vital signs from flowsheet : Vital Signs 02/16/2024 12:35 EDT Heart Rate Monitored 63 bpm Respiratory Rate 14 br/min Systolic Blood Pressure Non-Invasive 160 mmHg HI Diastolic Blood Pressure Non-Invasive 94 mmHg HI 02/16/2024 12:30 EDT Temperature Temporal Artery 36.3 DegC Heart Rate Monitored 55 bpm LOW Respiratory Rate 13 br/min LOW Systolic Blood Pressure Non-Invasive 136 mmHg Diastolic Blood Pressure Non-Invasive 79 mmHg 02/16/2024 12:25 EDT Heart Rate Monitored 70 bpm bpm Respiratory Rate - Anes 4 br/min br/min 02/16/2024 12:20 EDT Heart Rate Monitored 62 bpm bpm Respiratory Rate - Anes 16 br/min br/min Systolic Blood Pressure Non-Invasive 119 mmHg mmHg Diastolic Blood Pressure Non-Invasive 82 mmHg mmHg 02/16/2024 12:15 EDT Temperature (Route Not Specified) 36 DegC DegC Heart Rate Monitored 64 bpm bpm Respiratory Rate - Anes 13 br/min br/min Systolic Blood Pressure Non-Invasive 94 mmHg mmHg Diastolic Blood Pressure Non-Invasive 66 mmHg mmHg 02/16/2024 12:10 EDT Heart Rate Monitored 62 bpm bpm Respiratory Rate - Anes 13 br/min br/min Systolic Blood Pressure Non-Invasive 96 mmHg mmHg Diastolic Blood Pressure Non-Invasive 61 mmHg mmHg 02/16/2024 12:05 EDT Heart Rate Monitored 68 bpm bpm Respiratory Rate - Anes 4 br/min br/min Systolic Blood Pressure Non-Invasive 93 mmHg mmHg Diastolic Blood Pressure Non-Invasive 62 mmHg mmHg 02/16/2024 12:00 EDT Heart Rate Monitored 74 bpm bpm Respiratory Rate - Anes 0 br/min br/min Systolic Blood Pressure Non-Invasive 90 mmHg mmHg Diastolic Blood Pressure Non-Invasive 59 mmHg mmHg 02/16/2024 11:58 EDT Systolic Blood Pressure Non-Invasive 114 mmHg mmHg Diastolic Blood Pressure Non-Invasive 70 mmHg mmHg 02/16/2024 10:49 EDT Temperature Temporal Artery 36.5 DegC Peripheral Pulse Rate 88 bpm Respiratory Rate 12 br/min LOW Systolic Blood Pressure Non-Invasive 125 mmHg Diastolic Blood Pressure Non-Invasive 93 mmHg HI , Measurements from flowsheet . Mental status: alert & oriented x 4. Respiratory function: respirations are non-labored. Respiratory support: none. CV function: Normal rate. Cardiovascular support: none. Pain. Nausea status: see nursing documentation of medications. Postoperative hydration status: within normal limits. Digitally Signed by MARCUS SU on 02/16/2024 12:37 PM [facility]04-17-2024 Anesthesiology Consult note Patient: YANA BARBOZA Age: 53 years Sex: Female : 1970 Associated Diagnoses: None Author: MARCUS SU ALLERGY NURSE-UPSCALE SECURITY OFFICER Preoperative Information Time of last food or liquid consumption: 02/16/2024 00:00:00 Anesthesia history Patient's history: negative. Family's history: negative. Health Status Allergies: Allergic Reactions (Selected) Severity Not Documented Sulfa drug- No reactions were documented., Allergies (1) ActiveReaction sulfa drugNone Documented Current medications: (Selected) Inpatient Medications Ordered LR 1,000 mL: 20 mL/hr, Intravenous, Stop: 02/17/24 5:06:00 EDT Prescriptions Prescribed EpiPen 2-Abhijit 0.3 mg injectable kit: 0.3 mg, Intramuscular, AsDirected, PRN: Allergic reaction, 1 kit(s), 0 Refill(s) rizatriptan 10 mg oral tablet: See Instructions, TAKE 1 TABLET BY MOUTH ONCE NEEDED FOR MIGRAINEHEADACHE, 12 tab(s), 9 Refill(s), Medications (1) Active Scheduled: (0) Continuous: (1) Lactated Ringers 1,000 mL 1,000 mL, Intravenous, 20 mL/hr PRN: (0) Problem list: Medical Abnormal uterine bleeding (AUB) / SNOMED CT 4122226097 / Confirmed Bee sting allergy / SNOMED CT 0044648619 / Confirmed Olecranon bursitis, left elbow / SNOMED CT 962240079756515 / Confirmed Screening for cervical cancer / SNOMED CT 5082856095 / Confirmed Cellulitis of elbow / SNOMED CT 4296476871 / Confirmed Hyperlipidemia / SNOMED CT 08821431 / Confirmed Migraines / SNOMED CT 72334740 / Confirmed Neck pain / SNOMED CT 358525390 / Confirmed Well woman exam / SNOMED CT 760404255 / Confirmed Screening for breast cancer / SNOMED CT 704241452 / Confirmed Screening for colon cancer / SNOMED CT 082037916 / Confirmed Well adult exam / SNOMED CT 457226767 / Confirmed Contraceptive management / SNOMED CT 112854284 / Confirmed Positive colorectal cancer screening using Cologuard test / SNOMED CT 9580017621 / Confirmed 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, Active Problems (15) Abnormal uterine bleeding (AUB) Bee sting allergy Cellulitis of elbow Contraceptive management Hyperlipidemia Migraines Neck pain Olecranon bursitis, left elbow Positive colorectal cancer screening using Cologuard test Screening for breast cancer Screening for cervical cancer Screening for colon cancer TMJ syndrome Well adult exam Well woman exam Histories Past Medical History: Active Migraines ([id number]) Family History: Stroke Mother () Father Heart attack Mother () Coronary artery disease Brother Diabetes Mother () Cardiovascular disease Mother () Father Procedure history: Sinus ([id number]). Jean tooth ([id number]). Social History Social & Psychosocial Habits Alcohol 02/16/2024 Use: Current Frequency: 1-2 times per year Substance Abuse 02/16/2024 Use: Never Tobacco 02/16/2024 Tobacco Use: Never (less than 100 in l Home/Environment 02/16/2024 Domestic Concerns None Nutrition/Health 02/16/2024 Type of diet: Regular Caffeine intake amount: rare . Physical Examination Vital Signs 02/16/2024 12:05 EDT Heart Rate Monitored 68 bpm bpm Respiratory Rate - Anes 4 br/min br/min Systolic Blood Pressure Non-Invasive 93 mmHg mmHg Diastolic Blood Pressure Non-Invasive 62 mmHg mmHg 02/16/2024 12:00 EDT Heart Rate Monitored 74 bpm bpm Respiratory Rate - Anes 0 br/min br/min Systolic Blood Pressure Non-Invasive 90 mmHg mmHg Diastolic Blood Pressure Non-Invasive 59 mmHg mmHg 02/16/2024 11:58 EDT Systolic Blood Pressure Non-Invasive 114 mmHg mmHg Diastolic Blood Pressure Non-Invasive 70 mmHg mmHg 02/16/2024 10:49 EDT Temperature Temporal Artery 36.5 DegC Peripheral Pulse Rate 88 bpm Respiratory Rate 12 br/min LOW Systolic Blood Pressure Non-Invasive 125 mmHg Diastolic Blood Pressure Non-Invasive 93 mmHg HI Vital Signs(last 24 hrs) Last Charted Heart Rate Ohwwdzkvj70 bpm (FEB 15 12:05) SBP93 mmHg (FEB 15 12:05) DBP62 mmHg (FEB 15 12:05) Measurements from flowsheet : Measurements 02/16/2024 10:49 EDT Height 170 cm Admission Weight 85 kg [place] Body Weight 61.44 kg Admission Body Mass Index 29.41 m2 Pain assessment: Pain Assessment 02/16/2024 10:49 EDT Primary Pain Intensity 0 Pain Scale Type 0-10 Pain scale . General: Alert and oriented. Airway: Normal temporomandibular joint mobility, Normal mouth, Normal neck range of motion. Mallampati classification: II (soft palate, fauces, uvula visible). Dentition Evaluation: Denies loose/chipped teeth. Respiratory: Respirations are non-labored. Cardiovascular: Normal rate. Neurologic: Alert, Oriented. Review / Management Results review: No qualifying data available , Lab results 02/16/2024 12:11 EDT SN - TDC - Device Type CATH URETHRAL 14FR RED RUBBER WHEN GONE/USE L # 36114 02/16/2024 12:10 EDT SN - CTm - Surgery Start 02/16/2024 12:10 02/16/2024 12:05 EDT Heart Rate Monitored 68 bpm bpm Respiratory Rate - Anes 4 br/min br/min Systolic Blood Pressure Non-Invasive 93 mmHg mmHg Diastolic Blood Pressure Non-Invasive 62 mmHg mmHg Oxygen Saturation 99 % % 02/16/2024 12:00 EDT Heart Rate Monitored 74 bpm bpm Respiratory Rate - Anes 0 br/min br/min Systolic Blood Pressure Non-Invasive 90 mmHg mmHg Diastolic Blood Pressure Non-Invasive 59 mmHg mmHg Oxygen Saturation 87 % % cefOXitin 2 gram(s) gram(s) Sodium Chloride 0.9% 100 mL mL 02/16/2024 11:58 EDT Systolic Blood Pressure Non-Invasive 114 mmHg mmHg Diastolic Blood Pressure Non-Invasive 70 mmHg mmHg 02/16/2024 11:48 EDT SN - Cul - Culture Type Tissue in Formalin SN - Cul - Kind Specimen 02/16/2024 11:45 EDT SN - CAt - Role Performed Water Truck Driver 1 (Modified) SN - CAt - Role Performed Scrub 1 (Modified) 02/16/2024 11:36 EDT SN - DRS - Site and Details PERINEUM 02/16/2024 11:35 EDT SN - Proc - Anesthesia Type General SN - Proc - Actual Procedure HYSTEROSCOPY WITH DILATION AND CURETTAGE 02/16/2024 11:35 EDT SN - Irl - Irrigant Normal Saline 02/16/2024 11:35 EDT SN - SP - Prep Agents Betadine Scrub, Betadine Solution SN - SP - HR - Method N/A 02/16/2024 11:35 EDT SN - PP - Body Position Lithotomy Standard Intra-op 02/16/2024 11:35 EDT SN - PTCare - Anti-thromboembolism Sarai Sequential Compression Device (SCD) 02/16/2024 11:34 EDT SN - Assess - LOC Alert, Awake SN - Assess - Orientation Oriented X 3 SN - Assess - Post-op Skin Integrity Intact/Dry 02/16/2024 11:34 EDT SN - GCD - ASA Class 2 SN - GCD - Post-operative Diagnosis ABNORMAL UTERINE BLEEDING; ABNORMAL ENDOMETRIAL ULTRASOUND; MENOPAUSAL SYMPTOMS SN - GCD - Case Level Level 3 02/16/2024 11:33 EDT SN - TDC - Location URETHRA SN - TDC - DC'd at End of Case Yes 02/16/2024 11:32 EDT SN - CAt - Case Attendee SN - CAt - Case Attendee SN - CAt - Case Attendee SN - CAt - Case Attendee SN - CAt - Case Attendee SN - CAt - Case Attendee SN - CAt - Case Attendee SN - CAt - Case Attendee SN - CAt - Case Attendee SN - CAt - Case Attendee SN - CAt - Role Performed Primary Surgeon SN - CAt - Role Performed Attending Anesthesiologist 1 SN - CAt - Role Performed UPSCALE SECURITY OFFICER 02/16/2024 11:09 EDT SN - Preop - CTm Pt in SDS Room 02/16/2024 10:43 SN - Preop - CTm Pt Ready for OR/Proced 02/16/2024 11:09 02/16/2024 11:09 EDT Lactated Ringers Injection Begin Bag 1,000 mL mL 02/16/2024 11:01 EDT Forearm Right 02/16/2024 20 gauge Peripheral IV Activity: Insert new site Peripheral IV Dressing Condition: Clean, Dry, Intact Peripheral IV Dressing Activity: Applied Peripheral IV Line Status/Patency: Flushes easily Peripheral IV Site Condition: No complications Peripheral IV Equipment: Extension set Peripheral IV Number of Attempts: 1 02/16/2024 11:00 EDT ABO/Rh Interp A POS ABSC Interp (Gel) Negative ABSC 02/16/2024 10:49 EDT Height 170 cm Admission Weight 85 kg [place] Body Weight 61.44 kg Admission Body Mass Index 29.41 m2 Temperature Temporal Artery 36.5 DegC Peripheral Pulse Rate 88 bpm Respiratory Rate 12 br/min LOW Systolic Blood Pressure Non-Invasive 125 mmHg Diastolic Blood Pressure Non-Invasive 93 mmHg HI Primary Pain Intensity 0 Pain Scale Type 0-10 Pain scale Heart Rhythm Regular Respirations Unlabored Respiratory Pattern Regular Oxygen Saturation 96 % Abdomen Description Non-distended, Symmetric Abdomen Palpation Non-Tender Bowel Sounds All Quadrants Present Urinary Elimination Voiding, no difficulties Skin Temperature Warm Skin Description Normal for ethnicity Skin Integrity Not intact Characteristics of Speech Clear Level of Consciousness Alert Strength All Extremities Strong Tone All Extremities Normal Sensation All Extremities Intact Affect/Behavior Appropriate, Calm, Cooperative Orientation Oriented x 4 Activity Status ADL Awake, Resting Standard Safety ID band on, Allergy Band on, Call device within reach, Bed in low position, Wheels locked, Upper/Half-Length side-rails up, Phone within reach, personal items within reach, Safety level maintained 02/16/2024 10:48 EDT Allergies Yes Consent Form Signed Yes Patient Dressed In Hospital gown History & Physical On Chart Yes NPO Status Maintained Allergy Band on and Verified Yes Patient ID Band on and Verified Yes Implants Verified Yes Pacemaker/AICD Verified Yes Site Verified by Patient/Family Yes Blood Consent Signed Yes Last Fluid Intake 02/15/2024 21:00 Last Food Intake 02/15/2024 22:00 02/16/2024 10:44 EDT Test Urine Negative test (u) int test (u) int QC PRGUN Negative QC PRGUP Positive 02/16/2024 8:24 EDT [place] Pre-Surgical History & Physical . Assessment and Plan [place] [employer]esthesi[employer] (ASA) physical status classification: Class II. Anesthetic Preoperative Plan Anesthetic technique: General. Informed consent: signed by patient. Digitally Signed by MARCUS SU on 02/16/2024 12:13 PM [facility]04-17-2024 Note TRIMBLE ADMISSION HISTORY AND PHYSICIAL CHIEF COMPLAINT: Presenting for surgery for abnormal bleeding, and uterine fibroid. Known complex ovarian cyst, awaits FU scan. Was doing well while on BC but stopped taking last . History of Present Meurdqx89 y.o. WF , LMP 12/27. Was on OCPs for decades, and decided to stop assuming she was done with periods. 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 abnormal bleeding for a few months, last one pretty " vicious". History of HPV years ago. Quit taking OCPs in 04-07. Nothing till Oct 2 periods, heavy, Nov heavy, Feb wnl, then asecond,, with last one very heavy for 2 weeks, and new onset of pain. Review of Systems GENERAL: Energy level nromal Weight stable [] Sleeps poorlyhard to stay asleep. Mood: more stressed recently. 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 . Achy in pelvis SEXUALITY: NA as not sexually active recently. GASTROINTESTINAL Appetite: Good Abdominal pain: None Bowel movements: Regular, no change URINARY: Patient denies leakage due to activity . No dysuria. No . No urgency. No sensation of incomplete voiding. No nocturia. AFTER 50: Colonscopy 06/23 - polyp benign removed. Physical Exam ALLERGIES: (1) sulfa drug Social History Smoking Status - 08/26/2018 Never smoker Alcohol Use: Current. Frequency: 1-2 times per year., 04/04/2020 Home/Environment Domestic Concerns: None., 05/27/2023 Nutrition/Health Type of diet: Regular. Caffeine intake amount: rare., 05/27/2023 Substance Abuse Use: Never., 04/21/2022 Tobacco Nicotine Use: Never (less than 100 in lifetime)., 04/04/2020 Family History Cardiovascular disease:Mother and Father. Coronary artery disease: Brother. Diabetes: Mother. Heart attack: Mother. Stroke: Mother and Father. ACTIVE PROBLEMS: (15) Abnormal uterine bleeding (AUB) (6134362269) Bee sting allergy (7085667923) Cellulitis of elbow (6803072790) Contraceptive management (711305337) Hyperlipidemia (21236496) Migraines (47162858) Neck pain (346331388) Olecranon bursitis, left elbow (841705885630791) Positive colorectal cancer screening using Cologuard test (9053316606) Screening for breast cancer (345457504) Screening for cervical cancer (7100630631) Screening for colon cancer (420940610) TMJ syndrome (3378812524) Well adult exam (991050065) Well woman exam (606344181) Vitals and Measurements BP: 120/90 HT: 170 cm WT: 85.7 kg BMI: 29.65 No qualifying data available. Middle aged WF in NAD GENERAL: Well nourished ; no acute distress. ASSISTIVE DEVICES: None . PSYCHIATRIC: Alert and oriented x 3 , cooperative , mood normal , affect normal . HEAD: Normocephalic, nontraumatic head. ENT: Pupils equal, round, and reactive to light; conjunctiva clear bilaterally . Lids within normallimits . NECK: Supple, no lymphadenopathy, No thyromegaly noted. LYMPH: No cervical lymphadenopathy. No axillary lymphadenopathy. No inguinal lymphadenopathy. BREAST: def CARDIAC: Regular rate, regular rhythm, no murmurs noted. RESPIRATORY: Regular rate and depth; no distress; RIGHT lung clear , LEFT lung clear . Breath sounds normal . ABDOMEN: Soft , nontender . Normal bowel sounds. No organomegaly GENITOURINARY: Vulva within normal limits . No urethral discharge. No palpable inguinal hernia. Vaginal mucosa within normal limits . Cervix normal without discharge or tenderness . Bimanual exam unremarkable Uterus anteverted, Adnexae mobile, non tender, no masses. No rectocele. No cystocele. Anus: no hemorrhoids, no fistulae. Small uterus EXTREMITIES: No trace lower extremity pitting edema. No lymphedema. Dorsalis Pedis pulse +2/4 blaterally . Posterior Tibialis pulse +2/4 blaterally . Radial pulse +2/4 blaterally NEURO: Cranial Nerves II-XII grossly intact; speech normal MUSCULOSKELETAL: Gait normal . No scoliosis. No CVAT DERM: Warm and dry . Normal turgor. No observed exanthem. No significant dandruff. Assessment/Plan 1. Abnormal uterine bleeding (AUB) Prompted by discontinuing OCPs before confirmingmenopause. Discussed need to sample endometrium pros and cons of biopsy patient probably be adequate in this case given it endometrial stripe take several months to get her bleeding to normalize. Sheis planning to travel I did explain that D&C anesthesia minimal and clear of the lining so that she started her control pills again wanted things to sleep. Of note is that we need to confirm that endometrial tissue is normal at this time to help with the decision for management. I am hoping that she can go back on her low- dose control pill, through menopause. 2. Anovulatory bleeding most likely. 3. Abnormal endometrial ultrasound quite thick. 4. Menopausal symptoms but appears to be ovulating sporadically - hence complex cyst appearance. 5. Complex ovarian cyst for FU, given 1.6 cm size, likely to resolve. Problem List/Past Medical History Ongoing Abnormal uterine bleeding (AUB) Bee sting allergy Cellulitis of elbow Contraceptive management Hyperlipidemia Migraines Neck pain Olecranon bursitis, left elbow Positive colorectal cancer screening using Cologuard test Screening for breast cancer Screening for cervical cancer Screening for colon cancer TMJ syndrome Well adult exam Well woman exam Historical No qualifying data Procedure/Surgical History Sinus Allergies sulfa drug Digitally Signed by CAESAR GALLARDO MD on 02/16/2024 08:29 AM [facility]07-27-2023 Hospital Discharge instructions Patient Education 05/27/2023 15:31:31 Colonoscopy, Adult, Care After Colonoscopy, Adult, Care After This sheet gives you information about how to care for yourself after your procedure. Your health care provider may also give you more specific instructions. If you have problems or questions, contact your health care provider. What can I expect after the procedure? After the procedure, it is common to have: A small amount of blood in your stool for 24 hours after the procedure. Some gas. Mild abdominal cramping or bloating. Follow these instructions at home: General instructions For the first 24 hours after the procedure: ?Do not drive or use machinery. ?Do not sign important documents. ?Do not drink alcohol. ?Do your regular daily activities at a slower pace than normal. ?Eat soft, jwky-sv-opprzx foods. Take aitb-cjc-zklzdcj or prescription medicines only as told by your health care provider. Relieving cramping and bloating Try walking around when you have cramps or feel bloated. Apply heat to your abdomen as told by your health care provider. Use a heat source that your healthcare provider recommends, such as a moist heat pack or a heating pad. ?Place a towel between your skin and the heat source. ?Leave the heat on for 20 30 minutes. ?Remove the heat if your skin turns bright red. This is especially important if you are unable to feel pain, heat, or cold. You may have a greater risk of getting burned. Eating and drinking Drink enough fluid to keep your urine pale yellow. Resume your normal diet as instructed by your health care provider. Avoid heavy or fried foods thatare hard to digest. Avoid drinking alcohol for as long as instructed by your health care provider. Contact a health care provider if: You have blood in your stool 2 3 days after the procedure. Get help right away if: You have more than a small spotting of blood in your stool. You pass large blood clots in your stool. Your abdomen is swollen. You have nausea or vomiting. You have a fever. You have increasing abdominal pain that is not relieved with medicine. Summary After the procedure, it is common to have a small amount of blood in your stool. You may also have mild abdominal cramping and bloating. For the first 24 hours after the procedure, do not drive or use machinery, sign important documents, or drink alcohol. Contact your health care provider if you have a lot of blood in your stool, nausea or vomiting, a fever, or increased abdominal pain. This information is not intended to replace advice given to you by your health care provider. Make sure you discuss any questions you have with your health care provider. Document Released: 06/01/2005 Document Revised: 08/10/2018 Document Reviewed: 12/29/2016 [employer] Patient Education 2020 [employer]. 05/27/2023 15:31:30 Monitored Anesthesia Care, Care After Monitored Anesthesia Care, Care After These instructions provide you with information about caring for yourself after your procedure. Your health care provider may also give you more specific instructions. Your treatment has been plannedaccording to current medical practices, but problems sometimes occur. Call your health care provider if you have any problems or questions after your procedure. What can I expect after the procedure? After your procedure, you may: Feel sleepy for several hours. Feel clumsy and have poor balance for several hours. Feel forgetful about what happened after the procedure. Have poor judgment for several hours. Feel nauseous or vomit. Have a sore throat if you had a breathing tube during the procedure. Follow these instructions at home: For at least 24 hours after the procedure: Have a responsible adult stay with you. It is important to have someone help care for you until youare awake and alert. Rest as needed. Do not: ?Participate in activities in which you could fall or become injured. ?Drive. ?Use heavy machinery. ?Drink alcohol. ?Take sleeping pills or medicines that cause drowsiness. ?Make important decisions or sign legal documents. ?Take care of children on your own. Eating and drinking Follow the diet that is recommended by your health care provider. If you vomit, drink water, juice, or soup when you can drink without vomiting. Make sure you have little or no nausea before eating solid foods. General instructions Take ctrj-hov-yxaopwb and prescription medicines only as told by your health care provider. If you have sleep apnea, surgery and certain medicines can increase your risk for breathing problems. Follow instructions from your health care provider about wearing your sleep device: ?Anytime you are sleeping, including during daytime naps. ?While taking prescription pain medicines, sleeping medicines, or medicines that make you drowsy. If you smoke, do not smoke without supervision. Keep all follow-up visits as told by your health care provider. This is important. Contact a health care provider if: You keep feeling nauseous or you keep vomiting. You feel light-headed. You develop a rash. You have a fever. Get help right away if: You have trouble breathing. Summary For several hours after your procedure, you may feel sleepy and have poor judgment. Have a responsible adult stay with you for at least 24 hours or until you are awake and alert. This information is not intended to replace advice given to you by your health care provider. Make sure you discuss any questions you have with your health care provider. Document Released: 02/07/2017 Document Revised: 01/16/2019 Document Reviewed: 02/07/2017 [employer] Patient Education 2020 [employer]. Follow Up Care 05/26/2023 10:48:27 With:CHRISTINE VILLEGAS Address: [address] [place] [phone] Business (1) When: Unknown [facility] 07-27-2023 Summary of episode note Discharge Instructions Thank you for allowing [facility] to assist you with your healthcare needs. The following is importantdischarge information regarding your hospital visit. Your Care Team AGA HANKS APRN-DRAWING KILN SUPERVISOR What to do next Scheduled Follow-Up Appointments Appointment Type When Where Contact InformationMA Mammogram Screening Bilateral w/ [place] 06/04/2023 08:00 AM [facility] [phone] Follow Up Appointments Follow Up with CHRISTINE VILLEGAS When Where: [address] [place] [phone] Business (1) Allergies sulfa drug Medications Please ask your primary doctor or pharmacist before taking any other medication not listed, including over the counter drugs, herbal medications, vitamins and or supplements as they may interact withyour home medications. What How Much When Instructions Last Dose Unchanged EPINEPHrine (EpiPen 2-Abhijit 0.3 mg injectable kit) 0.3 Milligram Intramuscular As Directed as needed for Allergic reaction Unchanged ethinyl estradiol-norgestrel (Low-Ogestrel 0.3 mg-30 mcg oral tablet) 1 tab(s) by mouth Every day Duration: 28 Days Brand Lo-Ogestrel filling in lieu of pcp Unchanged rizatriptan (rizatriptan 10 mg oral tablet) See instructions TAKE 1 TABLET BY MOUTH ONCE NEEDED FOR MIGRAINE HEADACHE Please take this list to your next doctor s visit. Bring all medications you take, including over the counter medications, herbals and other supplements with you to your doctor s visit. Patients and families are reminded to discard old lists and to update any records with all medication providers or retail pharmacies. Education Materials Colonoscopy, Adult, Care After This sheet gives you information about how to care for yourself after your procedure. Your health care provider may also give you more specific instructions. If you have problems or questions, contact your health care provider. What can I expect after the procedure? After the procedure, it is common to have: A small amount of blood in your stool for 24 hours after the procedure. Some gas. Mild abdominal cramping or bloating. Follow these instructions at home: General instructions For the first 24 hours after the procedure: ? Do not drive or use machinery. ? Do not sign important documents. ? Do not drink alcohol. ? Do your regular daily activities at a slower pace than normal. ? Eat soft, yjls-nt-wtufrp foods. Take lfla-mlj-pyyclvw or prescription medicines only as told by your health care provider. Relieving cramping and bloating Try walking around when you have cramps or feel bloated. Apply heat to your abdomen as told by your health care provider. Use a heat source that your healthcare provider recommends, such as a moist heat pack or a heating pad. ? Place a towel between your skin and the heat source. ? Leave the heat on for 20 30 minutes. ? Remove the heat if your skin turns bright red. This is especially important if you are unable to feel pain, heat, or cold. You may have a greater risk of getting burned. Eating and drinking Drink enough fluid to keep your urine pale yellow. Resume your normal diet as instructed by your health care provider. Avoid heavy or fried foods thatare hard to digest. Avoid drinking alcohol for as long as instructed by your health care provider. Contact a health care provider if: You have blood in your stool 2 3 days after the procedure. Get help right away if: You have more than a small spotting of blood in your stool. You pass large blood clots in your stool. Your abdomen is swollen. You have nausea or vomiting. You have a fever. You have increasing abdominal pain that is not relieved with medicine. Summary After the procedure, it is common to have a small amount of blood in your stool. You may also have mild abdominal cramping and bloating. For the first 24 hours after the procedure, do not drive or use machinery, sign important documents, or drink alcohol. Contact your health care provider if you have a lot of blood in your stool, nausea or vomiting, a fever, or increased abdominal pain. This information is not intended to replace advice given to you by your health care provider. Make sure you discuss any questions you have with your health care provider. Document Released: 06/01/2005 Document Revised: 08/10/2018 Document Reviewed: 12/29/2016 [employer] Patient Education 2020 [employer]. Monitored Anesthesia Care, Care After These instructions provide you with information about caring for yourself after your procedure. Your health care provider may also give you more specific instructions. Your treatment has been plannedaccording to current medical practices, but problems sometimes occur. Call your health care provider if you have any problems or questions after your procedure. What can I expect after the procedure? After your procedure, you may: Feel sleepy for several hours. Feel clumsy and have poor balance for several hours. Feel forgetful about what happened after the procedure. Have poor judgment for several hours. Feel nauseous or vomit. Have a sore throat if you had a breathing tube during the procedure. Follow these instructions at home: For at least 24 hours after the procedure: Have a responsible adult stay with you. It is important to have someone help care for you until youare awake and alert. Rest as needed. Do not: ? Participate in activities in which you could fall or become injured. ? Drive. ? Use heavy machinery. ? Drink alcohol. ? Take sleeping pills or medicines that cause drowsiness. ? Make important decisions or sign legal documents. ? Take care of children on your own. Eating and drinking Follow the diet that is recommended by your health care provider. If you vomit, drink water, juice, or soup when you can drink without vomiting. Make sure you have little or no nausea before eating solid foods. General instructions Take tetu-thv-ehapgcd and prescription medicines only as told by your health care provider. If you have sleep apnea, surgery and certain medicines can increase your risk for breathing problems. Follow instructions from your health care provider about wearing your sleep device: ? Anytime you are sleeping, including during daytime naps. ? While taking prescription pain medicines, sleeping medicines, or medicines that make you drowsy. If you smoke, do not smoke without supervision. Keep all follow-up visits as told by your health care provider. This is important. Contact a health care provider if: You keep feeling nauseous or you keep vomiting. You feel light-headed. You develop a rash. You have a fever. Get help right away if: You have trouble breathing. Summary For several hours after your procedure, you may feel sleepy and have poor judgment. Have a responsible adult stay with you for at least 24 hours or until you are awake and alert. This information is not intended to replace advice given to you by your health care provider. Make sure you discuss any questions you have with your health care provider. Document Released: 02/07/2017 Document Revised: 01/16/2019 Document Reviewed: 02/07/2017 [employer] Patient Education 2020 [employer]. Additional Information VACCINATE! IT SAVES LIVES! Members of the community who have not yet received the COVID-19 vaccine and would like to receive it can visit one of [facility] vaccine clinics. There are many vaccine clinic locations within the [facility]. For locations and available times, please visit https://gettheshot.coronavirus.[place].gov/. It is important to note that some COVID mobile vaccine clinics are held outdoors and may be canceled in rainy or stormy conditions. To learn more about pediatric vaccinations (ages 5-11), we invite you to visit the [facility] webpage. [email or web address].[email or web address]/pages/[email or web address]-Ksetg-Xduinczsmvi-Vbunjegyad-[email or web address] stions.htmlTo learn more about the COVID-19 vaccine, we invite you to visit the CDC website for a list of frequently asked questions.https://www.cdc.gov/coronavirus/2019-ncov/vaccines/faq.html [facility] Patient Portal Access Instructions: Stay connected with your healthcare team and access your personal medical information anytime with the [facility] Patient Portal. Please follow the directions below to create your [employer] account: 1.Access the email account you provided upon registration to the hospital/physician office.2.Look for an invitation email from [facility].3.Open the email and access the invitation link: [facility]Inv[facility].4.Fill in the required beck to create your account. To access your account, visit [email or web address] [email or web address]. Click the blue button labeled "Access Patient Portal" and then log in with the username and password that you created in the steps above. You will be able to view your test results, lab results, a summary of your visits, upcoming appointments and more. There is also a convenient messaging option where you can send secure messages to your p Taniumvider. In addition, you will have the ability to download any documents or summaries to your computer and/or send the information securely to a physician. Remember that your healthcare information is confidential, so carefully consider who you will allowto register on the [facility] Patient Portal for access to your information. You can also access the [facility] [employer] [facility] Patient Portal on the [facility] cloudControlwhere doris. Simply click on "Patient Portal" and then log into your account. If you would like to receive a full copy of your medical records, please contact the [facility] Medical Records Department by calling [phone], Wednesday through Wednesday between 8 a.m. and 4:30 p.m. HOW TO SAFELY DISPOSE OF PRESCRIPTION MEDICATIONS Please use one of the following methods to safely dispose of your unused medications. 1.Use a drug disposal kit: the drug disposal pouch allows you to safely discard your old and unuseddrugs. Ask your nurse to give you one when you are discharged.2.Visit a local take-back location: Many local pharmacies and police departments have programs that collect old and unwanted prescriptiondrugs. Call your local pharmacy or go to http://[employer]V.Huixiaoer/2W6Lp1x to find one close to you.3.Make use of household items: Use cat litter or old coffee grounds to dispose medications if other options arenot available. Mix your drugs with these household products, seal them in an airtight container andthrow it into the garbage. Call [facility]: [phone] to be sure your drugs can be disposed of in this way. Some medicines may require a different approach.4.Never flush your medications down the toilet. IF YOU HAVE BEEN PRESCRIBED AN OPIOID FOR PAIN If you have been prescribed an opioid (such as hydrocodone, oxycodone or morphine), it is critical to understand the possible side effects and risks of opioid pain medications. Even when taken as directed, opioids can have several side effects including: Tolerance, meaning you might need to take more of a medication for the same pain relief. Nausea, vomiting and/or constipation. Sleepiness, dizziness, dry mouth, confusion, depression or itching. Physical dependence, meaning you have withdrawal symptoms when a medication is stopped, can develop within a few days. KNOW YOUR RESPONSIBILITIES It is important to know exactly how much and how often to take the opioid pain medications you are prescribed. Never take opioids in higher amounts or more often than prescribed. Do not combine opioids with alcohol or other drugs that cause drowsiness, such as benzodiazepines, also known as benzos, including diazepam and alprazolam, muscle relaxants or sleep aids. Never sell or share prescription opioids. This is illegal. Store opioids in a secure place and out of reach of others (including children, family, friends and visitors). The last page of this document has been signed and retained as a CHART COPY. Signatures Patient Education Materials Colonoscopy, Adult, Care After Monitored Anesthesia Care, Care After Medication Leaflets My discharge plan and instructions have been reviewed and explained to me and ITAMRA LEANN C understand my current condition and have read and understand these discharge instructions. I have received a written copy of the plan/instructions. If I have questions, I am aware that I should contact my doctor. Patient/Bright Cutter Signature: Date/Time: Relationship to Patient: Witness Name/Signature: Date/Time: [facility]07-27-2023 Anesthesiology Consult note Patient: YANA BARBOZA Age: 53 years Sex: Female : 1970 Associated Diagnoses: None Author: BJORN GROVEUPSCALE SECURITY OFFICER Preoperative Information Time of last food or liquid consumption: 05/26/2023 23:59:00 Anesthesia history Patient's history: negative. Family's history: negative. Review of Systems Ear/Nose/Mouth/Throat: Negative except as documented in history of present illness. Respiratory: Negative except as documented in history of present illness. Cardiovascular: Negative except as documented in history of present illness. Gastrointestinal: Negative except as documented in history of present illness. Genitourinary: Negative except as documented in history of present illness. Endocrine: Negative except as documented in history of present illness. Musculoskeletal: Negative except as documented in history of present illness. Integumentary: Negative except as documented in history of present illness. Neurologic: Negative except as documented in history of present illness. Health Status Allergies: Allergic Reactions (Selected) Severity Not Documented Sulfa drug- No reactions were documented., Allergies (1) ActiveReaction sulfa drugNone Documented Current medications: (Selected) Prescriptions Prescribed EpiPen 2-Abhijit 0.3 mg injectable kit: 0.3 mg, Intramuscular, AsDirected, PRN: Allergic reaction, 1 kit(s), 0 Refill(s) Low-Ogestrel 0.3 mg-30 mcg oral tablet: 1 tab(s), Oral, Daily, for 28 day(s), Brand Lo-Ogestrel filling in lieu of pcp, 28 tab(s), 0 Refill(s) PEG-3350 with Electrolytes (Eqv-GoLYTELY) oral powder for reconstitution: See Instructions, Take asdirected 1 day before colonoscopy. Follow instructions as provided by your GI provider at [facility] 1 EA, 0 Refill(s) rizatriptan 10 mg oral tablet: See Instructions, TAKE 1 TABLET BY MOUTH ONCE NEEDED FOR MIGRAINEHEADACHE, 9 tab(s), 1 Refill(s), No qualifying data available Problem list: Medical Bee sting allergy / SNOMED CT 6499643280 / Confirmed Olecranon bursitis, left elbow / SNOMED CT 980823263263588 / Confirmed Screening for cervical cancer / SNOMED CT 6385526147 / Confirmed Cellulitis of elbow / SNOMED CT 8293290182 / Confirmed Hyperlipidemia / SNOMED CT 18366955 / Confirmed Migraines / SNOMED CT 56691093 / Confirmed Neck pain / SNOMED CT 162514250 / Confirmed Well woman exam / SNOMED CT 943225827 / Confirmed Screening for breast cancer / SNOMED CT 576148431 / Confirmed Screening for colon cancer / SNOMED CT 781413945 / Confirmed Well adult exam / SNOMED CT 060914389 / Confirmed Contraceptive management / SNOMED CT 281805495 / Confirmed Positive colorectal cancer screening using Cologuard test / SNOMED CT 4131179035 / Confirmed 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 Procedure history: No active procedure history items have been selected or recorded. Social History Social & Psychosocial Habits Alcohol 05/26/2023 Use: Current Frequency: 1-2 times per year Substance Abuse 05/26/2023 Use: Never Tobacco 05/26/2023 Tobacco Use: Never (less than 100 in l Nutrition/Health 05/26/2023 Caffeine intake amount: rare . Physical Examination Vital Signs 05/26/2023 10:25 EDT Peripheral Pulse Rate 80 bpm Respiratory Rate 16 br/min Systolic Blood Pressure Non-Invasive 128 mmHg Diastolic Blood Pressure Non-Invasive 72 mmHg No qualifying data available Measurements from flowsheet : Measurements 05/26/2023 10:25 EDT Height 172.7 cm Height in inches 68 inch(es) Admission Weight 84.0 kg Weight Lbs 184.8 lb [place] Body Weight 63.88 kg BSA Admission 1.98 Body Mass Index 28.16 kg/m2 General: Alert and oriented. Airway: Normal neck range of motion. Mallampati classification: II (soft palate, fauces, uvula visible). Head: Normocephalic. Dentition Evaluation: Intact, Own teeth. Neck: Full range of motion. Respiratory: Lungs are clear to auscultation. Cardiovascular: Normal rate. Heart Sounds: Normal. Gastrointestinal: Soft. Musculoskeletal Normal range of motion. Integumentary: Intact, Warm, Dry. Neurologic: Alert, Oriented. Review / Management Results review: No qualifying data available , Lab results 05/26/2023 16:17 EDT Message Pre Certification Worksheet 05/26/2023 16:16 EDT Gastroenterology Phone Message Colonoscopy scheduled 05/26/2023 10:49 EDT Gastroenterology Office Note Office Visit Note History of Present Illness Documentation History of Present Illness Documentation Impression and Plan Documentation Impression and Plan Documentation Physical Examination Documentation Physical Examination Documentation 05/26/2023 10:25 EDT Height 172.7 cm Height in inches 68 inch(es) Admission Weight 84.0 kg Weight Lbs 184.8 lb [place] Body Weight 63.88 kg BSA Admission 1.98 Body Mass Index 28.16 kg/m2 Peripheral Pulse Rate 80 bpm Respiratory Rate 16 br/min Systolic Blood Pressure Non-Invasive 128 mmHg Diastolic Blood Pressure Non-Invasive 72 mmHg Chief Complaint Colonscopy Consult, positive cologuard. No family hx. Constipation No Quick Intake AMB - Text Ambulatory Quick Intake Amb Diarrhea No Preferred Lab [facility] Preferred [facility] . Assessment and Plan [place] [employer] Anesthesiologists (ASA) physical status classification: Class II. Anesthetic Preoperative Plan Premedication: intravenous. Anesthetic technique: MAC. Induction: intravenously. Maintenance airway: Mask. Risks discussed: nausea, vomiting, headache, sore throat, dental injury, hypotension, allergic reaction, serious complications. Informed consent: signed by patient. Notes: HLD; TMJ- mouth opening OK. Digitally Signed by BJORN GROVE on 05/27/2023 01:10 PM [facility]06-22-2023 Evaluation + Plan note Future Scheduled Tests Laboratory* Lipid Profile 04/22/23 * Complete Metabolic Panel 04/22/23 [facility] 06-22-2023 Evaluation + Plan note Future Appointments Future Scheduled Tests Laboratory* Lipid Profile 04/22/23 * Complete Metabolic Panel 04/22/23 [facility] Evaluation + Plan note Future Appointments Appointment Date:06/03/2022 09:00:00 AM Scheduled Provider: Location:[facility] Appointment Type:[facility] Mammogram Screening Bilateral w/ [place] Future Scheduled Tests Radiology* MA Mammo Screening Bilateral w/ Carlton 06/03/22 [facility] Evaluation + Plan note Future Appointments Appointment Date:08/20/2022 04:00:00 PM Scheduled Provider: Location:[facility] Appointment Type:PT [facility] Evaluation + Plan note Future Appointments Appointment Date:06/04/2023 08:00:00 AM Scheduled Provider: Location:[facility] Appointment Type:MA Mammogram Screening Bilateral w/ Carlton Future Scheduled Tests Laboratory* Lipid Profile 04/22/23 * Complete Metabolic Panel 04/22/23 Radiology* MA Mammo Screening Bilateral w/ Carlton 06/04/23 [facility] Evaluation + Plan note Future Appointments Appointment Date:01/06/2024 02:00:00 PM Scheduled Provider:AGA HANKS Location:[facility] Appointment Type:PC OV Future Scheduled Tests Laboratory* Lipid Profile 04/22/23 * Complete Metabolic Panel 04/22/23 [facility] Evaluation note* Diagnosis Onset Date Resolution Status Admit Date Abnormality of left breast o n screening mammogram acute May 15, 2 025 9:16am [facility] Work Phone: Hospital course Narrative No data available for this section [facility] Hospital Discharge instructions No data available for this section [facility] Progress note No data available for this section [facility] Reason for referral (narrative)No reason for referral [facility] Work Phone: Summary Purpose Family History No Family History Records Found Advance Directives No Advanced Directives Records FoundNo Advanced Directives Records FoundNo Advanced Directives Records Found Chief Complaint and Reason for Visit Chief Complaint Admit Date BIRADS 4- MAMMO ONLY May 15, 2025 9:1 6am Reason for Visit Admit Date Abnormality of left breast on screening mammogram May 15, 2025 9:16am Additional Source Comments Care Team (unrecognized sect ion and content) Personnel Name: AGA HANKS Address: Address: [address] [place] [address] Care Team Personnel Name: AGA HANKS Position: P4 Advanced Practice Nurse Med Service: Employed Provider Member Role: Primary Care Physician Address: Address: [address] [place] [address] Care Team Related Persons Name: OZ BARBOZA Care Team Personnel Name: AGA HANKS Position: P4 Advanced Practice Nurse Med Service: Employed Provider Member Role: Primary Care Physician Address: Address: [address] [place] [address] Care Team Related Persons Name: OZ BARBOZA Patient Care team informatio n (unrecognized section and content) Team Status: Active Member Role/Relationship Status Dates Aga Hanks NP, NP-C Primary Care Provider Active Team Status: Inactive Member Role/Relationship Status Dates Dr. Kelly Gates MD Attending Provider Active Start: May 15, 2025 End: May 15, 2025 Aga Hanks NP, NP-C Primary Care Provider Active Start: May 15, 2025 End: May 15, 2025 Aga Hanks NP, NP-[place] Referring Provider Active Start: May 15, 2025 End: May 15, 2025 INFORMATION SOURCE (unrecogn ized section and content) DATE CREATED AUTHOR 04/09/2024 [facility] ([place]) DATE CREATED AUTHOR AUTHOR'S ORGANGEO ATION 05/10/2025 [facility] DATE CREATED AUTHOR AUTHOR'S ORGANGEO ATION 05/21/2025 [facility] Goals (unrecognized section and content) Goals may be documented in a n alternate section FOR RECORDS PERTAINING TO PATIENTS WHO ARE OR HAVE BEEN ENROLLED IN A CHEMICAL DEPENDENCY/SUBSTANCEABUSE PROGRAM, SOME INFORMATION MAY BE OMITTED. This clinical summary was aggregated from multiple sources. Caution should be exercised in using it in the provision of clinical care. This summary normalizes information from multiple sources, and as a consequence, information in this document may materially change the coding, format and clinical context of patient data. In addition, data may be omitted in some cases. CLINICAL DECISIONS SHOULD BE BASED ON THE PRIMARY CLINICAL RECORDS. [employer] [facility]. provides no warranty or guarantee of the accuracy or completeness of information in this document.
== END | disposition home or self-care (01) ==
PROVIDERS: PCP Nurse Practitioner Primary Care; Referring Provider Surgery; Visit Provider Surgery
DX: D05.12 Intraductal carcinoma in situ of left breast (principal); Z17.0 Estrogen receptor positive status [ER+]; Z17.21 Progesterone receptor positive status; R92.0 Mammographic microcalcification found on diagnostic imaging of breast
CPT/HCPCS: 19082; 19081; 88305; 88341; 88342; A4648

== ENCOUNTER 2025-06-08 08:38 | Day surgery (SDC) | payer OTHER, SELFPAY ==
[2025-06-08] VITALS (9 sets, daily range): BP systolic 123–134; BP diastolic 73–81; PULSE 56–86; RESP 16–18; TEMP 36.1–36.4; O2SAT 100; BMI 26.4
[2025-06-08] MEDS: Lactated Ringers 1,000 ML 15 ML IV (08:58)
--- NOTE | 2025-06-08 09:03 | PCM.PRE.AN2 ---
ASA Classification* ASA Classification ASA Classification: 2 Assessment & Plan Anesthesia* Anesthesia Assessment Anesthesia Assessment: Discussed sedation and/or anesthesia options, risks, benefits, and alternatives with patient/parents/legal guardian/POA. Questions invited. The patient/parents/legal guardian/POA seems to understand and agrees to proceed with anesthesia plan. Reviewed the physical assessment, medical history, allergy history and patient home medications list prior to surgery/procedure/anesthetic and documented any changes. Performed airway and anesthesia risk assessments. Anesthesia Type Anesthesia Type: General (LMA vs GA ETT explained to patient. ) History Source History Obtained from:: Patient and Chart Anesthesia Focused Assessment* Temperature: 97.6 F Pulse Rate: 71 Blood Pressure: 134/81 Respiratory Rate: 16 Pulse Ox: 100 Oxygen Delivery Method: Room Air Airway Assessment Mouth opens: >3 cm Mallampati Score: III Teeth Condition: Intact (rest of teeth all intact) and Missing (bottom lower left molar) Neck Range of motion (ROM): Full ROM Comment: had TMJ once per patient, states her jaw frequently gets sore and causes migraines. 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 When Was Last Pacemaker Check QUESTION #4 FULL TEXT: You/Your Family Experience fever (hyperthermia) with Anesthesia Any additional information?: No Last Oral Intake Last Oral intake: Last Oral Intake NPO since 20:00 06/08/25 08:53 Meds taken in AM with sips of water? 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 Female Yes 06/01/25 09:12 HX of Motion Sickness No 06/01/25 09:12 HX of N/V After Surgery No 06/01/25 09:12 Non-Smoker Yes 06/01/25 09:12 Duration of Surgery greater No 06/01/25 09:12 than 60 minutes Number of Risk Factors 2 06/01/25 09:12 PONV Score Moderate Risk 06/01/25 09:12 Any additional information?: No Height & Weight Height & Weight: Anesthesia: Height & Weight Height 5 ft 8 in 06/08/25 08:53 Weight: 79 kg 06/08/25 08:53 Body Mass Index (BMI) 26.4 06/08/25 08:53 Respiratory Assessment Respiratory Assessment - taxi truck driver: Respiratory Tract Infection Hx - taxi truck driver Hx Respiratory Tract Infection No 06/01/25 09:12 Any additional information?: No STOP Sleep Apnea STOP Sleep Apnea - taxi truck driver: STOP Sleep Apnea - taxi 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 Has anyone observed you stop No 06/01/25 09:12 breathing during sleep? STOP Results Negative 06/01/25 09:12 QUESTION #5 FULL TEXT : Do you snore loudly (louder than talking or can be heard through closed doors)? 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 Specify any problems Hx of Preganancy in last 3 No 06/01/25 09:12 Months Nurse Filling Out Transfusion VLEHMAN 06/01/25 09:12 & Questions: Date: 06/01/25 06/01/25 09:12 Time: 09:18 06/01/25 09:12 Patient unable to answer at this time (ie. confused, unrespo Any additional information?: No /Reproduction History /Reproductive History - taxi truck driver: /Reproductive Hx- taxi truck driver Hx Now No 06/01/25 09:12 Gestational Age (in weeks): EDC: Hx Hx Para Hx Section SAB No 06/01/25 09:12 Any additional information?: No Active Medications Active Medications: Current Medications Generic Name Dose Route Start Last Admin Trade Name Freq PRN Reason Stop Dose Admin Cefazolin Sodium 2 gm/ Sodium 110 mls @ 200 mls/hr 06/08/25 10:30 Chloride IV 06/08/25 11:02 INTRAOP ONE Lactated Ringer's 1,000 mls @ 15 mls/hr 06/08/25 08:45 06/08/25 08:58 IV 15 mls/hr .Q48H MARCOS Administration PFSH Medical History Cancer Wears glasses Wears contact lenses Easy bruising Migraine headache Home Medications ?Medication ?Instructions ?Recorded ?Last Taken ?Type rizatriptan 10 mg tablet 10 mg PO ONCE PRN migraine headache 06/16/22 Unknown History Allergy/AdvReac Type Severity Reaction Status Date / Time bee venom protein (honey bee) Allergy Severe Anaphylaxis Verified 06/08/25 08:53 Sulfa (Sulfonamide AdvReac Nausea Verified 06/08/25 08:53 Antibiotics) Family History Grandmother Breast cancer Surgical History (Updated 06/01/25 @ 09:12 by Manuela Marie) History of D&C H/O sinus surgery Social History Smoking Status: Never smoker alcohol intake: never substance use type: does not use Addt'l Information Additional Findings: Patient takes Beneve (G3 natural supplement) Review of Systems (Anesthesia) ROS Narrative System reviewed and no additional complaints, except as documented.
--- NOTE | 2025-06-08 09:09 | HP.PCM_ITS ---
History and Physical Date of Admission: 06/08/25 Date of Service: 05/31/25 MR#: [id number] Acct: [id number] Name: YANA BARBOZA Rep #: [id number] : 1970 Provider: Dr. Kelly Gates MD Age/Sex: 55/F [facility] Status: Signed Intake Vital Signs 05/15/2509:19 05/31/2508:54 Height 5 ft 8 in 5 ft 8 in Weight: 174 lb 4 oz 172 lb BMI 26.4 26.1 BP 115/76 109/72 Blood Pressure Location Rt brachial Rt brachial Position Sitting Sitting Respiration 17 18 Pulse 81 80 Pulse Source Monitor Monitor Temp 97.3 F L 97.2 F L Temp Source Temporal Temporal Pulse Oximetry (%) 100 99 Oxygen Delivery Method room air room air Intake Visit Reasons: DISCUSS BREAST SX Chief Complaint: Discuss breast sx Is patient in pain?: No Allergies bee venom protein (honey bee) Allergy (Severe, Verified 05/31/25 08:55) AnaphylaxisSulfa (Sulfonamide Antibiotics) Adverse Reaction (Verified 05/31/25 08:55) Nausea Medications ?Medication ?Instructions ?Recorded ?Confirmed ?Type rizatriptan 10 mg tablet 10 mg PO ONCE PRN 06/16/22 05/31/25 Hist ory PFSH Surgical History H/O sinus surgery Family History Grandmother Breast cancer Social History Smoking Status: Never smoker alcohol intake: never substance use type: does not use HPI HPI HPI: 55-year-old female presents to discuss pathology from left breast stereotactic guided biopsy. Pathology showed DCIS ER/GA positive, high-grade. Patient states biopsy was sore the day after the procedure otherwise has been doing well . 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 ROS General General: No weight change, appetite, fatigue, colon cancer, breast cancer or weakness HEENT HEENT: No difficulty swallowing, eye injury, eye surgery, swollen glands or hoarseness Endo Endocrine: No thyroid disease, diabetes mellitus, thyroid cancer, Hair loss, heat intolerance or cold intolerance Skin Skin: No rash or changing moles Breast Breast: Yes abnormal mammogram; No left breast lump, right breast lump, nipple discharge, breast pain, abnormal US or breast enlargement Musc Musculoskeletal: Yes back problems; No arthritis, rheumatoid arthritis, gout or joint pain Additional Details: scoliosis Cardio Cardiovascular: No murmur, pacemaker, heart disease, atrial fibrillation, high blood pressure, heart attack, heart stent, palpitations, shortness of breath with exertion or chest pain Psych Psychiatric: No depression, anxiety or hearing voices Resp Respiratory: No shortness of breath, No sleep apnea, No cough, No COPD, No asthma, No emphysema and No wheezing Gastro Gastrointestinal: No abdominal pain, No nausea or vomiting, No diarrhea, No constipation, No blood in stool, No acid reflux, No hemorrhoids, No ulcers, No gallbladder problem and No black,tarry stools Bryan Hematologic: No blood thinners, No blood disorders, No bleeding, No anemia and No blood clots Neuro Neurologic: No numbness, No tingling and No weakness Exam Const General: cooperative, healthy appearing and no acute distress [facility] Head: normal to inspection Chest Other: Left breast: Previous biopsy site healing well, resolving ecchymosis Resp Effort & Inspection: normal respiratory effort Cardio Rate: regular rate GI Inspection: non-distended Palpation: soft Skin General: no rashes or lesions noted Neuro General: patient oriented x3 Extrem General: no clubbing, cyanosis or edema Psych Affect: normal affect Assessment and Plan Assessment and Plan (1) Ductal carcinoma in situ (DCIS) of left breast: Status: Acute Plan I have given the patient options for initial surgical treatment. Options are the following: lumpectomy followed by radiation therapy vs. mastectomy vs. mastectomy followed by immediate reconstruction. I have described the procedures to the patient. I have described the advantages and disadvantages of the options, but I have told the patient that among the options, the survival rate is the same. I have told the patient the risks of surgery, including but not limited to: infection, bleeding, scar tissue, seroma and persistent seroma, injury to any blood vessels, cosmetic deformity, wound infections, further surgery (especially if margins are not clear), complications of anesthesia, etc. the patient understands. Patient is agreeable to proceed with a left stereotactic wire localization lumpectomy?currently scheduled June 08 I have answered all the patient?s questions at this point to her satisfaction and she has no further questions. Kelly Gates M.D. Pager: [phone] [facility] [address] [place] [address], [address] [place] [address] Office: [phone] Coding Level of Care Code Off vis,est,level 4 Diagnoses Ductal carcinoma in situ (DCIS) of left breast D05.12 05/31/25 1449 <Electronically signed by Kelly Gates MD> Date Kelly Gates MD
--- NOTE | 2025-06-08 09:14 | BI_ITS ---
EXAM: BREAST BIOPSY SPECIMEN 06/08/2025 CLINICAL HISTORY: F, Age 55 y/o , TECHNIQUE: BREAST BIOPSY SPECIMEN COMPARISON: Prior exam(s) dated May 08, 2025.. FINDINGS: TISSUE DENSITY: There are scattered areas of fibroglandular density Bilateral Breast Mammographic Findings: The specimen contains the mass as well as the tissue clip marker in the localization wire. BI/Breast Biopsy Specimen IMPRESSION: OVERALL FINAL ASSESSMENT: BIRADS 11 WAITING PATHOLOGY. RECOMMENDATION: No recommendation required. A letter with findings and recommendations will be mailed to the patient. Reading Location: [id number]
[2025-06-08] MEDS: Lactated Ringers 1,000 ML 1000 ML IV (09:57)
[2025-06-08] MEDS: Cefazolin 1 GM/5 ML Vial 2 GM IV (09:58)
[2025-06-08] MEDS: Lidocaine 1% (5 ml sdv) 5 ML Vial IV (10:03)
[2025-06-08] MEDS: fentaNYL 100 MCG/2 ML Ampul 50 MCG IV (10:03)
--- NOTE | 2025-06-08 10:30 | BRBX_PTH ---
PATIENT: YANA BARBOZA LOC: [facility] U#:[id number] AGE/SX: 55/F ROOM: RE06/08/[address]: Dr. Kelly Gates MD : 1970 BED: DIS: 06/08/2025 SPEC #: [id number] RECD: 06/08/25 10:40 STATUS: JESSICA RERaza #: [id number] MATHEW: 06/08/25 10:[address]: Kelly Gates DEPT: SURGICAL PATHOLOGY RECD BY: Pastor Charlton ENTERED: 06/08/25 15:39 SP TYPE: BREAST BX OTHR DR: Elizabeth Rdz, DISPENSARY TECHNICIAN-C Tissues: A - Left breast, NOS Procedures: Immunohistochemical Stains Surgery Specimen Level V IHC Stain ADDITIONAL HEADER OPERATION: Breast, stereo wire localized left lumpectomy PRE-OP DIAGNOSIS: Ductal carcinoma in situ of left breast TISSUE SUBMITTED: A- Left breast mass *long stitch - lateral anterior margin, short stitch- middle anterior margin* MICROSCOPIC DIAGNOSIS A. Breast, left, lumpectomy: * Focal ductal carcinoma in situ (DCIS), high nuclear grade, solid pattern negative for necrosis, 1 mm from the anterior surgical margin - see note and Synoptic Report. * pTis pNX * Negative for invasive carcinoma (E-cadherin). * Biopsy site changes. Note: IHC for CK5/6, p40, and E-cadherin support the histologic impression. SYNOPTIC REPORT FOR DUCTAL CARCINOMA IN SITU (DCIS) OF BREAST: Specimen (P=partial, M=mastectomy):?P Laterality (R=right, L=left):?L Histologic type: DCIS Nuclear grade:?high Architectural patterns:?solid (current specimen); solid with comedonecrosis (). Necrosis (C=comedo, F=focal, N=not identified):?C () Microcalcifications (P=present, N=not identified):?P () Estimated largest size in case (cm):?1 mm (current case); 4 mm span (). Number of involved slides in case:?2 (current case); 2 (). ? Margins (P=positive, N=negative, NA=not applicable): N ??? Margins of main specimen:?N ??? Distance to closest margin of main specimen (mm):?1 mm ??? Designation of closest margin of main specimen:?anterior ?? ?Designation of other margins of main specimen </=2 mm:?NA ??? Longest span </= 2 mm to margin of main specimen (mm):?< 1 mm ??? Re-resection margin status:?NA ?? ?Re-resection margin designation </=2 mm:?NA ??? Re-resection longest span </= 2 mm to margin (mm):?NA ? Regional lymph nodes (NA=not applicable): NA ? Estrogen receptor:?positive (100%, strong intensity) Progesterone receptor:?positive (75%, intermediate intensity) Specimen in which ER/DC performed:? (biopsy) pTNM:?pTis pNX Additional findings:?NA Comment:?A radiograph of the breast specimen was performed to assist in the sectioning of the specimen and the image was reviewed and correlated with the histological findings. ? The above synoptic report complies, in slightly modified form, with the guidelines of the [employer] [employer] and the Association of Directors of Anatomic and Surgical Pathology for the reporting of cancer specimens MICROSCOPIC DESCRIPTION Slides are reviewed. All matched controls reacted appropriately. These tests were developed and their performance characteristics determined by [facility]. They may not have been cleared or approved by the U.S. Food and Drug Administration. The FDA has determined that such clearance or approval is not necessary.? The above immunohistochemical/dualISH?markers are reviewed by the Pathologist. GROSS DESCRIPTION A. Received fresh labeled with the patient's name and date of . Designated as left breast mass (see comments) is a 4.8 x 3.4 x 2.0 cm lumpectomy with an exposed localization wire, laterally on the anterior aspect. There is a short suture designated as middle superior margin and a long suture designated as lateral anterior margin. Skin is not present. The specimen is inked as follows: Superior: RedInferior: BlueMedial: YellowLateral: OrangeAnterior: GreenPosterior: Black The specimen is serially sectioned from medial to lateral (into 8 slices) revealing a 2.6 by 0.7 x 0.7 cm biopsy site containing pink-red spongy material, spanning slices #3-#8 with surrounding hemorrhage and yellow discoloration (suspicious for fat necrosis). A biopsy clip is identified within the biopsy site in slice #5. The biopsy site is located the following distances from each margin: Anterior: 0.2 cmInferior: 0.5 cmMedial: 1.2 cmLateral: 0.2 cmPosterior: 1.0 cmSuperior: 0.8 cm A definitive mass is not grossly appreciated.Review of postoperative imaging confirms the presence of a localization wire and biopsy clip. Manager Culture sections are submitted, sequentially from slice slice #1 (medial) to slice #8 (lateral), including the entirety of the biopsy site, as follows: A1: Slice #1, medial/anterior/posterior, perpendicular (yellow/green/black)A2: Slice #2, fat necrosis and fibrosis to anterior/posterior/superior (green/black/red)A3: Slice #3, biopsy site to anterior/inferior/superior (green/blue/red)A4: Slice #4, biopsy site including fat necrosis to anterior/inferior/superior (green/blue/red)A5: Slice #5, biopsy site including fat necrosis to closest anterior, and including inferior/posterior (green/blue/black)A6: Slice #6, biopsy site to closest inferior/superior/posterior, and including anterior (blue/red/black/green)A7: Slice #7, biopsy site to anterior/inferior/superior/lateral (green/blue/red/orange)A8: Slice #8, biopsy site to closest lateral, and including anterior, perpendicular (orange/green) Cold ischemic time: 13 minutesFormalin fixation time: 56 hours, 48 minutes MA 06/08/2025 CPT:[id number]
--- NOTE | 2025-06-08 10:31 | OP.PCM_ITS ---
Operative Report (Standard) Operative Information Date of Procedure: 06/08/25 Pre-Operative Diagnosis: Left breast DCIS Post-Operative Diagnosis: Same Surgery/Procedure Performed: Left breast stereo wire localization lumpectomy manager payroll: Yes Product Support Representative: Blanka Ratliff Tasks completed by personal banking assistant: Opening & closing and Retracting Type of Anesthesia: General/Supplemental RN Documented Start/Stop Times: Operation Date: 06/08/25 10:30 Case Time Into Pre-Op 06/08/25 08:39 Anesthesia Start 06/08/25 09:56 Into Room 06/08/25 09:56 Procedure Start 06/08/25 10:10 Procedure End 06/08/25 10:44 Anesthesia End 06/08/25 10:50 Out of Room 06/08/25 10:50 Into Recovery 06/08/25 10:53 Into Phase II Recovery 06/08/25 11:13 Out of Recovery 06/08/25 11:13 Procedure Start Time: 10:10 Procedure Stop Time: 10:44 Select all DRAINS/GRAFTS/IMPLANTS that apply: Prosthetic device Prosthetic device details: 3 clips mckeon deep cavity Special Medications: Ancef 2 g IV x 1 Estimated Blood Loss: < 10 cc Specimen collected: Yes Description of specimen(s) removed: Left breast lumpectomy Description of surgery: In mammography patient had a stereotactic wire localization of the clip. Clip was targeted and bard wire was placed at the clip after obtaining with local anesthesia. Additional 2 view mammography after procedure was completed. Patient was brought to operating placed spine operating table. Timeout was completed verifying correct patient, procedure, site, positioning, special, prior began procedure. General anesthesia was induced. Patient's left breast was prepped draped in a sterile fashion. Localization studies were reviewed. A radial incision was planned in such a way as to minimize the amount of dissection to reach the mass. Flaps were raised in the location of the wire confirmed. The wire was delivered into the wound. 2 silk [id number] stay suture was placed around the wire and used for traction. Dissection was then taken down circumferentially with electrocautery, taking care to include the entire localization needle and wide margin of grossly normal tissue. 3 clips were placed in the deep aspect of the cavity. The specimen and entire localizing wire were removed. The specimen was oriented and sent to radiology. Confirmation was received that the entire target lesion had been resected. The cavity was irrigated. Hemostasis was obtained with electrocautery. The breast incision was closed with interrupted sutures of 3-0 Vicryl and subcuticular sutures of 4-0 Monocryl. No attempt was made to close the space. A dressing of fluff gauze and supportive bra placed. The patient tolerated procedure well was taken to the postanesthesia care in stable condition. Surgical Findings: See operative report Complications Complications: No
[2025-06-08] MEDS: Bupiv/Epi 0.25% 30 ML Vial (10:34)
[2025-06-08] MEDS: Ketorolac 30 MG/ML Syringe IV (10:38)
--- NOTE | 2025-06-08 10:39 | EX.PCM.DISCH ---
Discharge Instructions Diet Discharge Diet: No restrictions Activity Discharge Activity: May Not Drive (for 2-3 days or while taking narcotic pain meds.) May shower in (days): 1 Lifting Restrictions: 10 pounds for 1 week. Dressing / Incision Call your doctor if your incision/area has: Continuous Slow Oozing, Sudden Increased Bleeding, Increased Pain/ Swelling and Increased Redness Call your doctor if you observe: Fever of 101 or Higher Suture Line Care: Avoid Pulling/Pushing and Avoid Pinching/Bending Remove Dressing in: 1 day Additional Dressing/Incision Instructions:: Remove bulky dressing tomorrow. May leave op-site dressing for 3-4 days. Okay to remove Steri-Strips from the breast incision in 7 to 10 days. Wear good supportive bra even at night for the first couple nights. Follow Up Care Please Follow Up With: Kelly Gates MD When: Please call [phone] for an appointment to be seen in 2 week. Test Results: Test results from this visit will be discussed in further detail at your follow-up appointment, if applicable. Discharge Plan Admission Attending Provider: Kelly Gates Primary Care Provider: Elizabeth Rdz NP Instructions Print Language: Guatemalan Discharge Orders/Prescriptions Prescriptions: New oxycodone 5 mg capsule 5 mg PO Q6H PRN (Reason: pain) 3 Days Qty: 5 0RF Continued rizatriptan 10 mg tablet 10 mg PO ONCE PRN (Reason: migraine headache) Referrals / Follow Up: Elizabeth Rdz NP, DIRECTOR SOFTWARE DEVELOPMENT-C [Primary Care Provider] - Disposition Disposition (needs filled in before D/C Order can be placed): Home, Self Care
--- NOTE | 2025-06-08 10:55 | PCM.POST.ANE ---
Anesthesia: Postop Eval I Current Vital Signs Temperature: 97 F Pulse Rate: 86 Blood Pressure: 124/77 Respiratory Rate: 18 Pulse Ox: 100 Oxygen Delivery Method: Room Air Assessment Airway patent: Yes Spontaneous unlabored respirations: Yes Mental status: Awake and Calm nausea: No Vomiting: No Anesthesia Complication: No Fluid Hydration Crystalloid volume administer (ml): 1,000 Total IV fluid infused: 1,000 Progress Note Anesthesia document: Postop Eval 1 completed: Yes
--- NOTE | 2025-06-08 17:34 | PCM.POSTANE2 ---
Anesthesia Postop Eval I Sum Anesthesia Postop Eval I Summary Anesthesia Postop Eval I Summary: Anesthesia Postop Eval I: Assessment Summary Airway patent Spontaneous unlabored respirations Mental status nausea Vomiting Anesthesia Postop Eval I: Fluid Summary Crystalloid volume administer (ml) Colloids volume administered ( ml) Blood Product volume administered (ml) Total IV fluid infused Anesthesia Postop Eval I: Summary Notes Anesthesia Complication Anesthesia Complication Comment: Post-operative progress note Anesthesia: Postop Eval II Evaluation Mental status: Awake and Calm Pain Level: 1 nausea: No Vomiting: No Complications Anesthesia Complication: No
== END 2025-06-08 12:00 | disposition home or self-care (01) ==
LOC: SDC 08:39 → AC 08:40
PROVIDERS: PCP Nurse Practitioner Primary Care; Referring Provider Surgery; Visit Provider Surgery
PROC: (CPT 19301; principal; 2025-06-08 10:15)
DX: D05.12 Intraductal carcinoma in situ of left breast (principal); Z17.0 Estrogen receptor positive status [ER+]
CPT/HCPCS: 19301; 00400; 19281; 76098; 88307; 88341; 88342; A4648; J2405

== ENCOUNTER → 2025-07-03 | Outpatient (CLI) | payer OTHER, SELFPAY ==
--- NOTE | 2025-07-03 08:42 | BD_ITS ---
PROCEDURE: DEXA BONE DENSITY STUDY 07/03/2025 REASON FOR EXAM: POSTMENOPAUSE F, age 55 y/o . Postmenopausal. TECHNIQUE: Procedure Code: BDDBD Modality: DX Procedure: DEXA BONE DENSITY STUDY COMPARISON: None FINDINGS: BMD and T-SCORES Lumbar spine: 1.069 g/cm2, T-score 0.2 Levels: L1 through L4 Change from prior: 1.3. Left femoral neck: 0.758 g/cm2, T-score -0.8 Femoral neck comparison data not recommended for monitoring change. Left total hip: 0.972 g/cm2, T-score 0.2 Change from prior: 0.9. Right femoral neck: 0.771 g/cm2, T-score -0.7 Femoral neck comparison data not recommended for monitoring change. Right total hip: 0.953 g/cm2, T-score 0.1 . The World Health Organization has defined the following categories based on bone density: Normal bone density: T-score equal to or greater than -1.0 Osteopenia: T-score between -1.0 and -2.5 Osteoporosis: T-score equal to or less than -2.5 FRAX (or Comparable) Fracture Risk Assessment: 10 Year Probability of Fracture: Major Osteoporotic Fracture: 20% Hip Fracture: 0.5% (Note: FRAX is not to be reported in setting of normal range bone density, osteoporosis on DEXA, known history of osteoporosis, prior osteoporotic hip or vertebral fracture, or for any patient undergoing pharmacological treatment for bone loss.) The National Osteoporosis Foundation (NOF) recommends pharmacological treatment for patients with a FRAX 10-year risk of 3% or higher for a hip fracture, or 20% or higher for a major osteoporotic fracture, to prevent osteoporosis and reduce fracture risk. The patient does meet the pharmacological treatment recommendations for prevention of osteoporosis. BD/Dexa Bone Density Study IMPRESSION: NORMAL T-SCORES. Recommend follow-up as clinically warranted. Reading Location: [place] [id number]
== END | disposition home or self-care (01) ==
LOC: OPBD 08:33
PROVIDERS: PCP Nurse Practitioner Primary Care; Referring Provider Internal Medicine Hematology & Oncology; Visit Provider Internal Medicine Hematology & Oncology
DX: Z78.0 Asymptomatic menopausal state (principal)
CPT/HCPCS: 77080

== ENCOUNTER 2025-07-09 17:40 | Emergency (ER) | payer OTHER, SELFPAY ==
[2025-07-09 17:40] VITALS: BP 151/91; PULSE 73; RESP 16; TEMP 37.1; O2SAT 100; BMI 26.2
[2025-07-09] MEDS: 0.9% Normal Saline (1000mL) 1,000 ML 1000 ML IV (18:13)
--- NOTE | 2025-07-09 18:40 | EX.ED.DYSGE1 ---
HPI History of Present Illness Chief Complaint: Nausea/Vomiting Detail of Chief Complaint: Nausea and vomiting x 11 since this morning Informant: patient and spouse/S.O. Onset/Context/Timing Onset: Today Context: Sudden Onset Timing: Continuous Quality: continuous nausea with 11 episodes of emesis and sharp pain Location: Epigastric Current Severity: Mild Maximum Severity: Moderate Worsened by: Vomiting Relieved by: nothing Associated Symptoms Associated Symptoms: No hematemesis or coffee-ground emesis Narrative Narrative: Patient is a 55-year-old woman who presents with nausea vomiting. She has 11 episodes of vomiting since this morning. Anytime she attempts to drink anything she vomits. There is been no evidence of hematemesis or coffee-ground emesis. She denies diarrhea. She denies fever, chills night sweats. She and her went to the fair yesterday. The only item they share it was cotton candy. She states she had a turkey leg. It did not taste unusual. She does endorse thirst and dry mouth. She denied orthostatic lightheadedness. She denies fever or chills. She does complain of headache. Not the worst headache. Denies double vision blurred vision loss of vision. Eyes tenderness. She denies upper respiratory tract infectious symptoms. Prior similar symptoms: Yes (Not as severe. She states it was due to food poisoning.) Recent Illness/Hospitalization: No [facility] Medical History Cancer Wears glasses Wears contact lenses Easy bruising Migraine headache Home Medications ?Medication ?Instructions ?Recorded ?Last Taken ?Type rizatriptan 10 mg tablet 10 mg PO ONCE PRN migraine headache 06/16/22 Unknown History acetaminophen 325 mg tablet 650 mg PO Q4-6H PRN 06/22/25 Unknown History (Tylenol) metoclopramide HCl 10 mg tablet 10 mg PO 4X/DAY PRN Headache #10 07/09/25 Unknown Rx tabs Allergy/AdvReac Type Severity Reaction Status Date / Time bee venom protein (honey bee) Allergy Severe Anaphylaxis Verified 07/09/25 17:42 Sulfa (Sulfonamide AdvReac Nausea Verified 07/09/25 17:42 Antibiotics) Family History Grandmother Breast cancer Mother Diabetes Brother Diabetes Heart disease Surgical History Status post left breast lumpectomy History of D&C H/O sinus surgery Social History Smoking Status: Never smoker alcohol intake: never substance use type: does not use ROS ROS ED Constitutional Constitutional ED: Denies chills, fever(s), subjective or sweats Eyes Eyes: Denies blurry vision or change in vision ENT ENT ED: Denies ear pain, rhinorrhea or sore throat Cardiovascular Cardiovascular: Denies chest pain, orthopnea, palpitations or paroxysmal nocturnal dyspnea Respiratory/Chest Respiratory/Chest: Denies cough, dyspnea, dyspnea on exertion, orthopnea or paroxysmal nocturnal dyspnea Gastrointestinal Gastrointestinal: Reports abdominal pain, nausea, vomiting and other Details: Epigastric sharp pain without radiation. No intolerance to greasy or fried foods. No family history of cholelithiasis. ; Denies constipation, diarrhea or melena Genitourinary Genitourinary ED: Denies dysuria, hematuria or urinary frequency Musculoskeletal Musculoskeletal: Denies arthralgias, back pain or myalgias Integumentary Denies rash Neurologic Neurologic: Reports headache(s); Denies paresthesias or weakness Endocrine Endocrinology: Denies cold intolerance or heat intolerance Hematologic/Lymphatic Hematologic/Lymphatic: Reports systems reviewed and no addt'l complaints, except as documented EXAM Physical Exam Const Vital Signs: 07/09/25 17:40 07/09/25 19:51 07/09/25 21:00 Temperature 98.7 F Temperature Source Oral Pulse Rate 73 64 Respiratory Rate 16 13 Blood Pressure 151/91 H 150/85 H 135/88 H Blood Pressure Mean 111 106 103 Pulse Ox 100 98 Oxygen Delivery Method Room Air Vital signs unremarked for an elevated blood pressure. Positive well nourished and well developed Constitutional Narrative: Patient appears ill but nontoxic. BMI is 26. General Appearance ED: well developed, NAD and pallor; Negative for cyanotic or diaphoretic HEENT Reports dry mucous membranes HEENT Narrative: Head is atraumatic no cephalic. Ears normal. Nares patent. Posterior pharynx is normal. Mouth ED: Yes dry mucous membranes Mouth: dry mucous membranes Eyes PERRL and EOMs intact bilaterally General Eye ED: Negative for pale conjunctiva or scleral icterus Neck no lymphadenopathy, supple and no JVD Chest Wall inspection of chest normal and palpation of chest normal Resp normal respiratory effort and clear to auscultation bilaterally Cardio regular rate, regular rhythm, S1 normal heart sound, S2 normal heart sound and no murmurs GI normal to inspection, nondistended, normoactive bowel sounds, non-distended and no masses; Negative for non-tender or hepatosplenomegaly Auscultation: normoactive bowel sounds Palpation: soft and tender epigastric, RUQ, McBurney's point, periumbilical and Cox's sign Back/Spine no CVA tenderness Extremity normal to inspection Neuro oriented x3 and CN's II-XII intact bilaterally Sensorium / Orientation: alert Motor Exam: strength 5/5 throughout Psych mental status grossly normal Skin no rashes or lesions noted, no wounds and No skin turgor normal General Skin Exam: pallor; Negative for elasticity normal or jaundice MDM MDM MDM Narrative Medical decision making narrative: This could represent food poisoning, viral illness, doubt biliary. Metabolic panel was obtained assess electrolytes, renal function CO2 anion gap. CBC to assess white count differential. She was treated with Zofran for her nausea and 1 L normal saline since clinically she is dehydrated. If liver enzymes are elevated will obtain ultrasound right upper quadrant. She denies intolerance to greasy or fried foods and had a negative clinical Cox sign. Her pain is in the epigastrium and suspect this is due to her vomiting. Lab Data Attestation: I reviewed the patient's lab results. Lab results narrative: Basic metabolic panel is remarked for glucose of 125. CO2 and anion gap are normal. Urinalysis is remarkable for ketones. Spec gravity was 1.010. Labs: Laboratory Results - last 24 hr 07/09/25 18:12 Sodium 140 Potassium 3.7 Chloride 102 Carbon Dioxide 25.2 Anion Gap 13 BUN 16 Creatinine 0.90 Estim Creat Clear Calc 77.64 Est GFR (MDRD) Non-Af 75 BUN/Creatinine Ratio 18.0 Glucose 125 H Calcium 9.3 Total Bilirubin 0.45 AST 19 ALT 12 Alkaline Phosphatase 105 H Total Protein 7.0 Albumin 4.2 Globulin 2.9 Albumin/Globulin Ratio 1.5 Urine Color Yellow Urine Clarity Clear Urine pH 8.0 Ur Specific [place] 1.010 Urine Protein 30 H Urine Glucose (UA) Normal Urine Ketones 15 H Urine Occult Blood Negative Urine Nitrite Negative Urine Bilirubin Negative Urine Urobilinogen Normal Ur Leukocyte Esterase Negative Urine RBC 0-5 SEEN Urine WBC 0-5 SEEN Ur Squamous Epith Cells 0-5 SEEN Urine Bacteria 1+ Urine Mucus 1+ Treatment and Re-Evaluation :: The patient was reassessed she reports no improvement after Zofran. In light of this Reglan was ordered IV push. Comments:: I was informed by nurse that patient felt much better after Reglan. She passed her p.o. challenge. She has urinated. Plan is to discharge to home. There was a delay in her discharge because of other patients in the department. Discharge Plan Triage Chief Complaint: Nausea/Vomiting ED Provider: Samuel Flower Dx/Rx/DC Orders Clinical Impression: Nausea & vomiting, Acute dehydration, Acute epigastric pain Instructions: ED Vomiting (Adult) Prescriptions: New metoclopramide HCl 10 mg tablet 10 mg PO 4X/DAY PRN (Reason: Headache) Qty: 10 0RF No Action rizatriptan 10 mg tablet 10 mg PO ONCE PRN (Reason: migraine headache) acetaminophen [Tylenol] 325 mg tablet 650 mg PO Q4-6H PRN Primary Care Provider: Elizabeth Rdz NP Referrals: Elizabeth Rdz NP, EXERCISE SCIENCE INSTRUCTOR-C [Primary Care Provider] - As Needed Print Language: Tam[place] Disposition Disposition: Home, Self Care
[2025-07-09 18:52] LABS: AST(SGOT) 19 U/L (<=31); Alanine Aminotransfer ALT/SGPT 12 U/L (<=34); Albumin, Serum 4.2 g/dL (3.5-5.0); Alkaline Phosphatase 105 U/L (35-104); Anion Gap 13 (5-15); BUN 16 mg/dL (4-19); BUN/Creat Ratio 18.0 RATIO (10-20); Calcium,Total 9.3 mg/dL (7.6-11.0); Carbon Dioxide 25.2 mmol/L (21.0-32.0); Chloride 102 mmol/L (98-108); Estimated Creatinine Clearance 77.64 ml/min (50-250); Globulin 2.9 g/dL (2.2-4.2); Glucose 125 mg/dL (70-99); Potassium 3.7 mmol/L (3.3-5.1)
[2025-07-09 19:51] VITALS: BP 150/85; PULSE 64; RESP 13; O2SAT 98
[2025-07-09 20:13] LABS: Color, Urine Yellow (Yellow); Glucose, Dipstick Normal (Normal); Ketone-Dipstick 15 mg/dl (Negative); Leukocyte Esterase-Dipstick Negative /ul (Negative); Nitrite-Dipstick Negative (Negative); Occult Blood-Urine Negative /ul (Negative); Protein-Dipstick 30 mg/dl (Negative); Specific Gravity, Urine 1.010 (1.002-1.030); Urine Bilirubin Dipstick Negative (Negative)
[2025-07-09 20:39] LABS: Red Blood Cells-Urine 0-5 SEEN /hpf (0-5); Squamous Epithelial Cells - UA 0-5 SEEN /hpf (5-10)
[2025-07-09 20:40] LABS: Mucous, Urine 1+ /hpf (<or=2+)
[2025-07-09 21:00] VITALS: BP 135/88
[2025-07-09 22:23] VITALS: BP 135/88; PULSE 64; RESP 13; TEMP 37.1; O2SAT 98
== END 2025-07-09 22:23 | disposition home or self-care (01) ==
PROVIDERS: Emergency Provider Emergency Medicine; PCP Nurse Practitioner Primary Care; Visit Provider Emergency Medicine
DX: E86.0 Dehydration (principal); R11.2 Nausea with vomiting, unspecified; R10.13 Epigastric pain; G43.909 Migraine, unspecified, not intractable, without status migrainosus
CPT/HCPCS: 80053; 81001; 96361; 96374; 96375; 99285; A4216; J2405